=== PATIENT | male | born 1935 | race Caucasian/White ===

== ENCOUNTER → 2019-03-18 09:41 | Outpatient (CLI) | payer MEDICARE, OTHER, SELFPAY ==
[2019-03-18 09:53] LABS: Bacteria Urine None Seen; RBC Urine None Seen (0-5/HPF); WBC Urine None Seen (0-5/HPF)
[2019-03-18 10:40] LABS: Appearance Urine UA CLEAR; Bilirubin Urine UA NEGATIVE (NEGATIVE); Color Urine UA YELLOW; Glucose Urine UA NEGATIVE (Negative); Ketones Urine UA NEGATIVE (NEGATIVE); Leukocyte Esterase Urine UA NEGATIVE (NEGATIVE); Nitrite Urine UA NEGATIVE (Negative); Occult Blood Urine UA NEGATIVE (Negative); Protein Urine UA NEGATIVE (Negative); Specific Gravity Urine UA 1.025 (1.000-1.035); Urobilinogen Urine UA 0.2 E.U./dL (0.2); pH Urine UA 5.5 (4.5-8.0)
[2019-03-18 10:47] LABS: Add Manual Diff / Slide Review NO; Basophils Absolute Auto 0 /uL (0-100); Basophils Percent Auto 0.4 % (0-2); Eosinophils Absolute Auto 100 /uL (0-450); Eosinophils Percent Auto 0.9 % (2-4); Hematocrit 49.1 % (41-53); Hemoglobin 16.8 g/dL (13.5-17.5); Lymphocytes Absolute Auto 1600 /uL (1100-4500); Lymphocytes Percent Auto 28.1 % (25-40); Mean Corpuscular HGB Conc 34.1 % (30-36); Mean Corpuscular Hemoglobin 30.3 PG (26-34); Mean Corpuscular Volume 88.8 fL (80-100); Monocytes Absolute Auto 600 /uL (0-900); Monocytes Percent Auto 11.3 % (3-14); Neutrophils Absolute Auto 3400 /uL (1500-7000); Neutrophils Percent Auto 59.3 % (50-75); Platelet Count 189 X10^3/uL (150-400); Red Blood Cell Count 5.53 X10^6/uL (4.5-5.9); Red Cell Distribution Width 13.4 % (11.6-14.8); White Blood Cell Count 5.7 X10^3/uL (4.5-11.0)
[2019-03-18 10:48] LABS: Culture Indicated Urine Cult Not Indicated; Urine Comments Microscopic Normal
[2019-03-18 10:52] LABS: Hemoglobin A1C% w Est Avg Glu 5.5 % (4.0-6.0)
[2019-03-18 10:59] LABS: BUN Creatinine Ratio 31.1 (6-22); Blood Urea Nitrogen 28 mg/dL (9-20); Calcium 8.8 mg/dL (8.4-10.2); Carbon Dioxide 32 mmol/L (22-32); Chloride 103 mmol/L (98-107); Estimated Glomerular Filt Rate > 60.0 mL/min (>60); Glucose 96 mg/dL (80-110); HEMOLYSIS < 15 (0-50); Potassium 4.1 mmol/L (3.4-5.1); Sodium 143 mmol/L (137-145)
== END ==
PROVIDERS: PCP Internal Medicine; Visit Provider Orthopaedic Surgery
DX: Z01.818 Encounter for other preprocedural examination (principal); Z01.812 Encounter for preprocedural laboratory examination; R73.9 Hyperglycemia, unspecified; N39.0 Urinary tract infection, site not specified
CPT/HCPCS: 36415; 80048; 81001; 83036; 85025; 93005; 93010

== ENCOUNTER 2022-11-21 16:40 | Inpatient (IN) | payer MEDICARE, OTHER, SELFPAY ==
[2022-11-21] VITALS (72 sets, daily range): BP systolic 109–188; BP diastolic 72–111; PULSE 51–186; RESP 13–31; TEMP 36.7; O2SAT 93–98; BMI 25.8; BMI 26.2
--- NOTE | 2022-11-21 16:53 | DI.RAD.S_ITS ---
PROCEDURE: XR CHEST 1V INDICATIONS: chest pain TECHNIQUE: One view of the chest was acquired. COMPARISON: None. FINDINGS: Surgical changes and devices: None. Lungs and pleura: Low lung volumes. No dense consolidation or pleural effusion. Mediastinum: Mediastinal contours appear normal. Heart size is normal. Bones and chest wall: No suspicious bony lesions. Overlying soft tissues appear unremarkable. IMPRESSION: Low lung volumes. Portable radiograph. This limits evaluation. No acute radiographic abnormality Dictated by: Tom Flores M.D. on 11/21/2022 at 17:03 Approved by: Tom Flores M.D. on 11/21/2022 at 17:04
[2022-11-21] MEDS: ASPIRIN 81 MG CHEW TAB 324 MG PO (17:33)
[2022-11-21] MEDS: ADENOSINE 6 MG/2 ML VIAL IV (17:45)
--- NOTE | 2022-11-21 17:45 | ED_ITS ---
HPI - Arrhythmia/Palpitations <Marlon Bass MD - Last Filed: 11/30/22 09:38> General Chief Complaint: Arrhythmia/Palpitations Stated Complaint: high heart rate - ~ 190 Time Seen by Provider: 11/21/22 16:54 Source: patient Mode of arrival: Ambulatory History of Present Illness HPI narrative: Patient here for palpitations and dizziness. Patient seen at [facility] emergency department yesterday. Given Adenocard and discharged home to follow up with [facility] EP Cardiology Dr. Sharma. No prescriptions were given. Patient denies any chest pain. No prior history of arrhythmia. Related Data Home Medications Medication Instructions Recorded Confirmed aspirin 81 mg tablet 81 mg PO DAILY 11/21/22 11/21/22 atorvastatin 40 mg tablet 40 mg PO ONCE PM 11/21/22 11/21/22 losartan 100 1 tab PO QAM 11/21/22 11/21/22 mg-hydrochlorothiazide 12.5 mg tablet potassium chloride 10 mEq 10 meq PO DAILY 11/21/22 11/21/22 tablet,extended release Previous Rx's Medication Instructions Recorded amlodipine 10 mg tablet 10 mg PO DAILY #90 tabs 11/24/22 metoprolol succinate 50 mg 50 mg PO DAILY #90 tabs 11/24/22 tablet,extended release 24 hr Allergies Allergy/AdvReac Type Severity Reaction Status Date / Time No Known Drug Allergies Allergy Verified 11/21/22 20:40 Review of Systems <Marlon Bass MD - Last Filed: 11/30/22 09:38> Review of Systems Narrative: GENERAL: negative chills, fatigue, malaise, fever, sweats. HEENT: negative sinus pain, ear pain, sore throat RESPIRATORY: negative dyspnea, cough CARDIOVASCULAR: negative chest pain, positive palpitations GASTROINTESTINAL: negative nausea, vomiting, abdominal pain : negative dysuria, frequency, hematuria MUSCULOSKELETAL: negative muscle or bony pain SKIN: negative rash, skin lesions NEUROLOGIC: negative weakness, numbness, positive dizzy ROS Unobtainable: All systems reviewed & are unremarkable except as noted in HPI and below Patient History <Marlon Bass MD - Last Filed: 11/30/22 09:38> Medical History (Updated 11/21/22 @ 20:14 by Melissa Mercer RN) High cholesterol Hypertension Social History household members: spouse Smoking Status: Never smoker alcohol intake: never Smoking Status: Never smoker Substance Use Type: does not use Exam <Marlon Bass MD - Last Filed: 11/30/22 09:38> Narrative Exam Narrative: GENERAL: in no distress, not toxic not dyspneic HEAD: Normocephalic. EYES: Pupils equal round ENT: Mucous membranes moist. NECK: Trachea midline. CARDIOVASCULAR: Tachycardia with Regular rate and rhythm RESPIRATORY: Clear to auscultation. Breath sounds equal bilaterally. No wheezes, rales, or rhonchi. GASTROINTESTINAL: Abdomen soft, non-tender EXTREMITIES: No gross deformities. BACK: No flank tenderness. NEURO: AOx4. SKIN: Warm and dry PSYCH: Not anxious, is cooperative Initial Vital Signs Initial Vital Signs: Vital Signs Temperature 98.0 F 11/21/22 16:48 Pulse Rate 186 H 11/21/22 16:48 Respiratory Rate 16 11/21/22 16:48 Blood Pressure 144/99 H 11/21/22 16:48 Pulse Oximetry 96 11/21/22 16:48 Oxygen Delivery Method Room Air 11/21/22 16:48 <Prasad Sánchez DO - Last Filed: 11/21/22 22:24> Initial Vital Signs Initial Vital Signs: Vital Signs Temperature 98.0 F 11/21/22 16:48 Pulse Rate 186 H 11/21/22 16:48 Respiratory Rate 16 11/21/22 16:48 Blood Pressure 144/99 H 11/21/22 16:48 Pulse Oximetry 96 11/21/22 16:48 Oxygen Delivery Method Room Air 11/21/22 16:48 Course <Marlon Bass MD - Last Filed: 11/30/22 09:38> Orders Ordered: Discontinued Medications Adenosine (Adenosine 6 Mg/2 Ml Vial) 6 mg IV NOW ONE Stop: 11/21/22 17:42 Last Admin: 11/21/22 17:45 Dose: 6 mg Documented By: STEVEN Adenosine (Adenosine 6 Mg/2 Ml Vial) 12 mg IV NOW ONE Stop: 11/21/22 23:29 Last Admin: 11/21/22 23:32 Dose: 12 mg Documented By: Amlodipine Besylate (Amlodipine 5 Mg Tablet) 10 mg PO DAILY [facility] Last Admin: 11/24/22 10:02 Dose: 10 mg Documented By: Admin: 11/23/22 09:18 Dose: 10 mg Documented By: Admin: 11/22/22 15:40 Dose: 10 mg Documented By: AUSTIN Apixaban (Apixaban 5 Mg Tablet) 5 mg PO BID [facility] Last Admin: 11/23/22 09:17 Dose: 5 mg Documented By: Admin: 11/22/22 21:15 Dose: 5 mg Documented By: Admin: 11/22/22 09:59 Dose: 5 mg Documented By: TERESA Aspirin (Aspirin 81 Mg Chew Tab) 324 mg PO NOW ONE Stop: 11/21/22 16:54 Last Admin: 11/21/22 17:33 Dose: 324 mg Documented By: CHHAYA Aspirin (Aspirin 81 Mg Chew Tab) 81 mg PO DAILY [facility] Last Admin: 11/22/22 07:05 Dose: 81 mg Documented By: ONEL Atorvastatin Calcium (Atorvastatin 20 Mg Tablet) 40 mg PO BEDTIME [facility] Last Admin: 11/23/22 21:12 Dose: 40 mg Documented By: Admin: 11/22/22 21:15 Dose: 40 mg Documented By: Admin: 11/21/22 22:26 Dose: 40 mg Documented By: Diltiazem HCl (Diltiazem 5 Mg/Ml Sdv) 20 mg IV NOW ONE Stop: 11/21/22 23:36 Last Admin: 11/21/22 23:44 Dose: 20 mg Documented By: Enoxaparin Sodium (Enoxaparin 40 Mg/0.4 Ml Syringe) 40 mg SUBCUT DAILY [facility] Last Admin: 11/22/22 07:06 Dose: 40 mg Documented By: ONEL Heparin Sodium (Porcine) (Heparin 5,000 Unit/Ml Vial) 5,000 unit SUBCUT BID [facility] Last Admin: 11/24/22 10:15 Dose: 5,000 unit Documented By: Admin: 11/23/22 21:12 Dose: 5,000 unit Documented By: CARMELO Hydralazine HCl (Hydralazine 20 Mg/Ml Vial) 10 mg IV Q6HR PRN PRN Reason: SBP >180 or DBP >110 Last Admin: 11/23/22 09:19 Dose: 10 mg Documented By: Admin: 11/22/22 19:03 Dose: 10 mg Documented By: Admin: 11/22/22 12:18 Dose: 10 mg Documented By: TERESA Hydrochlorothiazide (Hydrochlorothiazide 25 Mg Tablet) 12.5 mg PO DAILY [facility] Last Admin: 11/24/22 10:01 Dose: 12.5 mg Documented By: Admin: 11/23/22 09:17 Dose: 12.5 mg Documented By: Admin: 11/22/22 09:43 Dose: Not Given Documented By: Admin: 11/22/22 07:06 Dose: 12.5 mg Documented By: ONEL DILTIAZEM (Diltiazem 125 Mg/125 Ml-D5w) 125 mg in 125 mls @ 5 mls/hr IV TITRATE [facility]; Protocol Last Titration: 11/22/22 01:33 Dose: 0 mg/hr, 0 mls/hr Documented By: Admin: 11/21/22 23:44 Dose: 5 mg/hr, 5 mls/hr Documented By: HERMES Magnesium Sulfate (Magnesium Sulfate) 2 gm in 50 mls @ 25 mls/hr IV NOW ONE Stop: 11/23/22 10:24 Last Admin: 11/23/22 09:16 Dose: 25 mls/hr Documented By: ANABEL Co-signed By: JESSICA Losartan Potassium (Losartan 50 Mg Tablet) 100 mg PO DAILY [facility] Last Admin: 11/24/22 10:01 Dose: 100 mg Documented By: Admin: 11/23/22 09:17 Dose: 100 mg Documented By: Admin: 11/22/22 09:45 Dose: Not Given Documented By: Admin: 11/22/22 07:05 Dose: 100 mg Documented By: ONEL Metoprolol Succinate (Metoprolol Er 25 Mg Tablet) 12.5 mg PO DAILY [facility] Last Admin: 11/22/22 10:08 Dose: 12.5 mg Documented By: TERESA Metoprolol Succinate (Metoprolol Er 25 Mg Tablet) 25 mg PO DAILY [facility] Last Admin: 11/23/22 09:17 Dose: 25 mg Documented By: ANABEL Metoprolol Succinate (Metoprolol Er 50 Mg Tablet) 100 mg PO DAILY [facility] Metoprolol Succinate (Metoprolol Er 50 Mg Tablet) 50 mg PO DAILY [facility] Last Admin: 11/24/22 10:03 Dose: 50 mg Documented By: ANABEL Metoprolol Tartrate (Metoprolol Tartrate 5 Mg/5 Ml Inj) 5 mg IV NOW ONE Stop: 11/21/22 17:42 Last Admin: 11/21/22 18:12 Dose: Not Given Documented By: STEVEN Metoprolol Tartrate (Metoprolol Ir 25 Mg Tablet) 25 mg PO BID [facility] Last Admin: 11/22/22 10:05 Dose: Not Given Documented By: TERESA Metoprolol Tartrate (Metoprolol Tartrate 5 Mg/5 Ml Inj) 5 mg IV NOW ONE Stop: 11/21/22 23:24 Last Admin: 11/21/22 23:27 Dose: 5 mg Documented By: Metoprolol Tartrate (Metoprolol Tartrate 5 Mg/5 Ml Inj) 5 mg IV Q5M PRN PRN Reason: HR >130, hold for SBP <100 Metoprolol Tartrate (Metoprolol Ir 25 Mg Tablet) 25 mg PO Q6HR [facility] Last Admin: 11/24/22 06:27 Dose: Not Given Documented By: Admin: 11/24/22 00:09 Dose: Not Given Documented By: Admin: 11/23/22 17:14 Dose: 25 mg Documented By: Admin: 11/23/22 13:35 Dose: Not Given Documented By: Admin: 11/23/22 11:45 Dose: 25 mg Documented By: ANABEL Naloxone HCl (Naloxone 0.4 Mg/Ml Vial) 0.2 mg IV Q2MIN PRN PRN Reason: Opiate Reversal Non-Formulary Medication (Aspirin) 81 mg PO DAILY [facility] Non-Formulary Medication (Losartan-Hydrochlorothiazide) 1 tab PO QAM [facility] Potassium Chloride (Potassium Chloride 10 Meq Tab) 10 meq PO DAILY [facility] Last Admin: 11/24/22 10:02 Dose: 10 meq Documented By: Admin: 11/23/22 09:18 Dose: 10 meq Documented By: Admin: 11/22/22 09:45 Dose: Not Given Documented By: Admin: 11/22/22 07:07 Dose: 10 meq Documented By: ONEL Potassium Chloride (Potassium Chloride 20 Meq Tab) 40 meq PO NOW ONE Stop: 11/22/22 08:57 Last Admin: 11/22/22 09:59 Dose: 40 meq Documented By: TERESA Quetiapine Fumarate (Quetiapine 25 Mg Tablet) 25 mg PO BEDTIME [facility] Last Admin: 11/23/22 21:12 Dose: 25 mg Documented By: Admin: 11/22/22 21:15 Dose: 25 mg Documented By: Admin: 11/22/22 19:03 Dose: 25 mg Documented By: MM Sodium Chloride (Sodium Chloride 0.9% Flush) 10 ml IV PRN PRN PRN Reason: Flush Sodium Chloride (Sodium Chloride 0.9% Flush) 10 ml IV BID [facility] Last Admin: 11/24/22 10:15 Dose: 10 ml Documented By: Admin: 11/23/22 21:12 Dose: 10 ml Documented By: CARMELO Vital Signs Vital signs: Vital Signs - 8 hr 11/21/22 16:48 11/21/22 16:56 11/21/22 17:00 Temperature 98.0 F Pulse Rate 186 H Respiratory Rate 16 Blood Pressure 144/99 H 109/82 116/93 H Pulse Oximetry 96 Oxygen Delivery Method Room Air 11/21/22 17:00 11/21/22 17:20 11/21/22 17:20 Temperature Pulse Rate 183 H 173 H Respiratory Rate 23 22 Blood Pressure 127/89 Pulse Oximetry 96 96 Oxygen Delivery Method 11/21/22 17:30 11/21/22 17:30 11/21/22 17:40 Temperature Pulse Rate 172 H 174 H Respiratory Rate 23 25 H Blood Pressure 122/81 Pulse Oximetry 94 94 Oxygen Delivery Method 11/21/22 17:40 11/21/22 17:50 11/21/22 17:50 Temperature Pulse Rate 176 H Respiratory Rate 30 H Blood Pressure 123/84 131/87 Pulse Oximetry 95 Oxygen Delivery Method 11/21/22 18:00 11/21/22 18:00 11/21/22 18:05 Temperature Pulse Rate 171 H Respiratory Rate 29 H Blood Pressure 127/89 188/84 H Pulse Oximetry 94 Oxygen Delivery Method 11/21/22 18:05 11/21/22 18:10 11/21/22 18:10 Temperature Pulse Rate 77 70 Respiratory Rate 22 22 Blood Pressure 155/78 H Pulse Oximetry 94 94 Oxygen Delivery Method 11/21/22 18:15 11/21/22 18:15 11/21/22 18:20 Temperature Pulse Rate 62 63 Respiratory Rate 17 22 Blood Pressure 158/74 H Pulse Oximetry 96 96 Oxygen Delivery Method 11/21/22 18:20 11/21/22 18:25 11/21/22 18:25 Temperature Pulse Rate 64 Respiratory Rate 21 Blood Pressure 145/74 H 154/72 H Pulse Oximetry 96 Oxygen Delivery Method 11/21/22 18:30 11/21/22 18:31 11/21/22 18:31 Temperature Pulse Rate 81 83 Respiratory Rate 20 26 H Blood Pressure 187/91 H Pulse Oximetry 97 96 Oxygen Delivery Method 11/21/22 18:41 11/21/22 18:41 11/21/22 18:45 Temperature Pulse Rate 67 Respiratory Rate 21 Blood Pressure 154/97 H 149/85 H Pulse Oximetry 95 Oxygen Delivery Method 11/21/22 18:45 11/21/22 18:50 11/21/22 18:50 Temperature Pulse Rate 61 60 Respiratory Rate 21 19 Blood Pressure 158/81 H Pulse Oximetry 95 95 Oxygen Delivery Method 11/21/22 18:55 11/21/22 18:55 11/21/22 19:00 Temperature Pulse Rate 64 Respiratory Rate 20 Blood Pressure 154/80 H 162/81 H Pulse Oximetry 96 Oxygen Delivery Method 11/21/22 19:00 11/21/22 19:05 11/21/22 19:05 Temperature Pulse Rate 61 63 Respiratory Rate 20 18 Blood Pressure 133/80 Pulse Oximetry 96 96 Oxygen Delivery Method 11/21/22 19:10 11/21/22 19:10 11/21/22 19:15 Temperature Pulse Rate 60 60 Respiratory Rate 16 21 Blood Pressure 143/88 H Pulse Oximetry 97 95 Oxygen Delivery Method 11/21/22 19:15 11/21/22 19:21 11/21/22 19:21 Temperature Pulse Rate 63 Respiratory Rate 22 Blood Pressure 161/77 H 174/91 H Pulse Oximetry 95 Oxygen Delivery Method 11/21/22 19:26 11/21/22 19:26 11/21/22 19:30 Temperature Pulse Rate 62 Respiratory Rate 21 Blood Pressure 179/86 H 161/84 H Pulse Oximetry 96 Oxygen Delivery Method 11/21/22 19:30 11/21/22 19:35 11/21/22 19:35 Temperature Pulse Rate 59 L 57 L Respiratory Rate 21 20 Blood Pressure 158/89 H Pulse Oximetry 95 96 Oxygen Delivery Method 11/21/22 19:40 11/21/22 19:40 11/21/22 19:45 Temperature Pulse Rate 55 L 57 L Respiratory Rate 22 16 Blood Pressure 145/88 H Pulse Oximetry 95 98 Oxygen Delivery Method 11/21/22 19:45 11/21/22 19:50 11/21/22 19:50 Temperature Pulse Rate 57 L Respiratory Rate 20 Blood Pressure 158/85 H 152/91 H Pulse Oximetry 95 Oxygen Delivery Method 11/21/22 20:00 11/21/22 20:00 Temperature Pulse Rate 57 L Respiratory Rate 21 Blood Pressure 152/90 H Pulse Oximetry 96 Oxygen Delivery Method <Prasad Sánchez DO - Last Filed: 11/21/22 22:24> Orders Ordered: Discontinued Medications Adenosine (Adenosine 6 Mg/2 Ml Vial) 6 mg IV NOW ONE Stop: 11/21/22 17:42 Last Admin: 11/21/22 17:45 Dose: 6 mg Documented By: STEVEN Adenosine (Adenosine 6 Mg/2 Ml Vial) 12 mg IV NOW ONE Stop: 11/21/22 23:29 Last Admin: 11/21/22 23:32 Dose: 12 mg Documented By: Amlodipine Besylate (Amlodipine 5 Mg Tablet) 10 mg PO DAILY [facility] Last Admin: 11/24/22 10:02 Dose: 10 mg Documented By: Admin: 11/23/22 09:18 Dose: 10 mg Documented By: Admin: 11/22/22 15:40 Dose: 10 mg Documented By: AUSTIN Apixaban (Apixaban 5 Mg Tablet) 5 mg PO BID [facility] Last Admin: 11/23/22 09:17 Dose: 5 mg Documented By: Admin: 11/22/22 21:15 Dose: 5 mg Documented By: Admin: 11/22/22 09:59 Dose: 5 mg Documented By: TERESA Aspirin (Aspirin 81 Mg Chew Tab) 324 mg PO NOW ONE Stop: 11/21/22 16:54 Last Admin: 11/21/22 17:33 Dose: 324 mg Documented By: CHHAYA Aspirin (Aspirin 81 Mg Chew Tab) 81 mg PO DAILY [facility] Last Admin: 11/22/22 07:05 Dose: 81 mg Documented By: ONEL Atorvastatin Calcium (Atorvastatin 20 Mg Tablet) 40 mg PO BEDTIME [facility] Last Admin: 11/23/22 21:12 Dose: 40 mg Documented By: Admin: 11/22/22 21:15 Dose: 40 mg Documented By: Admin: 11/21/22 22:26 Dose: 40 mg Documented By: Diltiazem HCl (Diltiazem 5 Mg/Ml [facility]) 20 mg IV NOW ONE Stop: 11/21/22 23:36 Last Admin: 11/21/22 23:44 Dose: 20 mg Documented By: Enoxaparin Sodium (Enoxaparin 40 Mg/0.4 Ml Syringe) 40 mg SUBCUT DAILY [facility] Last Admin: 11/22/22 07:06 Dose: 40 mg Documented By: ONEL Heparin Sodium (Porcine) (Heparin 5,000 Unit/Ml Vial) 5,000 unit SUBCUT BID [facility] Last Admin: 11/24/22 10:15 Dose: 5,000 unit Documented By: Admin: 11/23/22 21:12 Dose: 5,000 unit Documented By: CARMELO Hydralazine HCl (Hydralazine 20 Mg/Ml Vial) 10 mg IV Q6HR PRN PRN Reason: SBP >180 or DBP >110 Last Admin: 11/23/22 09:19 Dose: 10 mg Documented By: Admin: 11/22/22 19:03 Dose: 10 mg Documented By: JOSE RAMON Admin: 11/22/22 12:18 Dose: 10 mg Documented By: TERESA Hydrochlorothiazide (Hydrochlorothiazide 25 Mg Tablet) 12.5 mg PO DAILY [facility] Last Admin: 11/24/22 10:01 Dose: 12.5 mg Documented By: Admin: 11/23/22 09:17 Dose: 12.5 mg Documented By: Admin: 11/22/22 09:43 Dose: Not Given Documented By: Admin: 11/22/22 07:06 Dose: 12.5 mg Documented By: ONEL DILTIAZEM (Diltiazem 125 Mg/125 Ml-D5w) 125 mg in 125 mls @ 5 mls/hr IV TITRATE [facility]; Protocol Last Titration: 11/22/22 01:33 Dose: 0 mg/hr, 0 mls/hr Documented By: Admin: 11/21/22 23:44 Dose: 5 mg/hr, 5 mls/hr Documented By: Magnesium Sulfate (Magnesium Sulfate) 2 gm in 50 mls @ 25 mls/hr IV NOW ONE Stop: 11/23/22 10:24 Last Admin: 11/23/22 09:16 Dose: 25 mls/hr Documented By: ANABEL Co-signed By: CLL Losartan Potassium (Losartan 50 Mg Tablet) 100 mg PO DAILY [facility] Last Admin: 11/24/22 10:01 Dose: 100 mg Documented By: Admin: 11/23/22 09:17 Dose: 100 mg Documented By: Admin: 11/22/22 09:45 Dose: Not Given Documented By: Admin: 11/22/22 07:05 Dose: 100 mg Documented By: ONEL Metoprolol Succinate (Metoprolol Er 25 Mg Tablet) 12.5 mg PO DAILY [facility] Last Admin: 11/22/22 10:08 Dose: 12.5 mg Documented By: TERESA Metoprolol Succinate (Metoprolol Er 25 Mg Tablet) 25 mg PO DAILY [facility] Last Admin: 11/23/22 09:17 Dose: 25 mg Documented By: ANABEL Metoprolol Succinate (Metoprolol Er 50 Mg Tablet) 100 mg PO DAILY [facility] Metoprolol Succinate (Metoprolol Er 50 Mg Tablet) 50 mg PO DAILY [facility] Last Admin: 11/24/22 10:03 Dose: 50 mg Documented By: ANABEL Metoprolol Tartrate (Metoprolol Tartrate 5 Mg/5 Ml Inj) 5 mg IV NOW ONE Stop: 11/21/22 17:42 Last Admin: 11/21/22 18:12 Dose: Not Given Documented By: STEVEN Metoprolol Tartrate (Metoprolol Ir 25 Mg Tablet) 25 mg PO BID [facility] Last Admin: 11/22/22 10:05 Dose: Not Given Documented By: TERESA Metoprolol Tartrate (Metoprolol Tartrate 5 Mg/5 Ml Inj) 5 mg IV NOW ONE Stop: 11/21/22 23:24 Last Admin: 11/21/22 23:27 Dose: 5 mg Documented By: Metoprolol Tartrate (Metoprolol Tartrate 5 Mg/5 Ml Inj) 5 mg IV Q5M PRN PRN Reason: HR >130, hold for SBP <100 Metoprolol Tartrate (Metoprolol Ir 25 Mg Tablet) 25 mg PO Q6HR [facility] Last Admin: 11/24/22 06:27 Dose: Not Given Documented By: Admin: 11/24/22 00:09 Dose: Not Given Documented By: Admin: 11/23/22 17:14 Dose: 25 mg Documented By: Admin: 11/23/22 13:35 Dose: Not Given Documented By: Admin: 11/23/22 11:45 Dose: 25 mg Documented By: ANABEL Naloxone HCl (Naloxone 0.4 Mg/Ml Vial) 0.2 mg IV Q2MIN PRN PRN Reason: Opiate Reversal Non-Formulary Medication (Aspirin) 81 mg PO DAILY [facility] Non-Formulary Medication (Losartan-Hydrochlorothiazide) 1 tab PO QAM [facility] Potassium Chloride (Potassium Chloride 10 Meq Tab) 10 meq PO DAILY [facility] Last Admin: 11/24/22 10:02 Dose: 10 meq Documented By: Admin: 11/23/22 09:18 Dose: 10 meq Documented By: Admin: 11/22/22 09:45 Dose: Not Given Documented By: Admin: 11/22/22 07:07 Dose: 10 meq Documented By: ONEL Potassium Chloride (Potassium Chloride 20 Meq Tab) 40 meq PO NOW ONE Stop: 11/22/22 08:57 Last Admin: 11/22/22 09:59 Dose: 40 meq Documented By: TERESA Quetiapine Fumarate (Quetiapine 25 Mg Tablet) 25 mg PO BEDTIME [facility] Last Admin: 11/23/22 21:12 Dose: 25 mg Documented By: Admin: 11/22/22 21:15 Dose: 25 mg Documented By: Admin: 11/22/22 19:03 Dose: 25 mg Documented By: MM Sodium Chloride (Sodium Chloride 0.9% Flush) 10 ml IV PRN PRN PRN Reason: Flush Sodium Chloride (Sodium Chloride 0.9% Flush) 10 ml IV BID [facility] Last Admin: 11/24/22 10:15 Dose: 10 ml Documented By: Admin: 11/23/22 21:12 Dose: 10 ml Documented By: CARMELO Vital Signs Vital signs: Vital Signs - 8 hr 11/21/22 16:48 11/21/22 16:56 11/21/22 17:00 Temperature 98.0 F Pulse Rate 186 H Respiratory Rate 16 Blood Pressure 144/99 H 109/82 116/93 H Pulse Oximetry 96 Oxygen Delivery Method Room Air 11/21/22 17:00 11/21/22 17:20 11/21/22 17:20 Temperature Pulse Rate 183 H 173 H Respiratory Rate 23 22 Blood Pressure 127/89 Pulse Oximetry 96 96 Oxygen Delivery Method 11/21/22 17:30 11/21/22 17:30 11/21/22 17:40 Temperature Pulse Rate 172 H 174 H Respiratory Rate 23 25 H Blood Pressure 122/81 Pulse Oximetry 94 94 Oxygen Delivery Method 11/21/22 17:40 11/21/22 17:50 11/21/22 17:50 Temperature Pulse Rate 176 H Respiratory Rate 30 H Blood Pressure 123/84 131/87 Pulse Oximetry 95 Oxygen Delivery Method 11/21/22 18:00 11/21/22 18:00 11/21/22 18:05 Temperature Pulse Rate 171 H Respiratory Rate 29 H Blood Pressure 127/89 188/84 H Pulse Oximetry 94 Oxygen Delivery Method 11/21/22 18:05 11/21/22 18:10 11/21/22 18:10 Temperature Pulse Rate 77 70 Respiratory Rate 22 22 Blood Pressure 155/78 H Pulse Oximetry 94 94 Oxygen Delivery Method 11/21/22 18:15 11/21/22 18:15 11/21/22 18:20 Temperature Pulse Rate 62 63 Respiratory Rate 17 22 Blood Pressure 158/74 H Pulse Oximetry 96 96 Oxygen Delivery Method 11/21/22 18:20 11/21/22 18:25 11/21/22 18:25 Temperature Pulse Rate 64 Respiratory Rate 21 Blood Pressure 145/74 H 154/72 H Pulse Oximetry 96 Oxygen Delivery Method 11/21/22 18:30 11/21/22 18:31 11/21/22 18:31 Temperature Pulse Rate 81 83 Respiratory Rate 20 26 H Blood Pressure 187/91 H Pulse Oximetry 97 96 Oxygen Delivery Method 11/21/22 18:41 11/21/22 18:41 11/21/22 18:45 Temperature Pulse Rate 67 Respiratory Rate 21 Blood Pressure 154/97 H 149/85 H Pulse Oximetry 95 Oxygen Delivery Method 11/21/22 18:45 11/21/22 18:50 11/21/22 18:50 Temperature Pulse Rate 61 60 Respiratory Rate 21 19 Blood Pressure 158/81 H Pulse Oximetry 95 95 Oxygen Delivery Method 11/21/22 18:55 11/21/22 18:55 11/21/22 19:00 Temperature Pulse Rate 64 Respiratory Rate 20 Blood Pressure 154/80 H 162/81 H Pulse Oximetry 96 Oxygen Delivery Method 11/21/22 19:00 11/21/22 19:05 11/21/22 19:05 Temperature Pulse Rate 61 63 Respiratory Rate 20 18 Blood Pressure 133/80 Pulse Oximetry 96 96 Oxygen Delivery Method 11/21/22 19:10 11/21/22 19:10 11/21/22 19:15 Temperature Pulse Rate 60 60 Respiratory Rate 16 21 Blood Pressure 143/88 H Pulse Oximetry 97 95 Oxygen Delivery Method 11/21/22 19:15 11/21/22 19:21 11/21/22 19:21 Temperature Pulse Rate 63 Respiratory Rate 22 Blood Pressure 161/77 H 174/91 H Pulse Oximetry 95 Oxygen Delivery Method 11/21/22 19:26 11/21/22 19:26 11/21/22 19:30 Temperature Pulse Rate 62 Respiratory Rate 21 Blood Pressure 179/86 H 161/84 H Pulse Oximetry 96 Oxygen Delivery Method 11/21/22 19:30 11/21/22 19:35 11/21/22 19:35 Temperature Pulse Rate 59 L 57 L Respiratory Rate 21 20 Blood Pressure 158/89 H Pulse Oximetry 95 96 Oxygen Delivery Method 11/21/22 19:40 11/21/22 19:40 11/21/22 19:45 Temperature Pulse Rate 55 L 57 L Respiratory Rate 22 16 Blood Pressure 145/88 H Pulse Oximetry 95 98 Oxygen Delivery Method 11/21/22 19:45 11/21/22 19:50 11/21/22 19:50 Temperature Pulse Rate 57 L Respiratory Rate 20 Blood Pressure 158/85 H 152/91 H Pulse Oximetry 95 Oxygen Delivery Method 11/21/22 20:00 11/21/22 20:00 Temperature Pulse Rate 57 L Respiratory Rate 21 Blood Pressure 152/90 H Pulse Oximetry 96 Oxygen Delivery Method MDM - Arrhythmia/Palpitations <Marlon Bass MD - Last Filed: 11/30/22 09:38> Lab Data 11/24/22 08:15 11/24/22 08:15 Labs: Lab Results 11/21/22 11/22/22 11/23/22 Range/Units 16:50 04:24 07:48 WBC 8.7 7.1 (4.5-11.0) X10^3/uL RBC 5.33 5.35 (4.5-5.9) X10^6/uL Hgb 15.9 16.0 (13.5-17.5) g/dL Hct 47.1 47.3 (41-53) % MCV 88.3 88.3 (80-100) fL MCH 29.9 29.9 (26-34) PG MCHC 33.8 33.8 (30-36) % RDW 13.1 13.3 (11.6-14.8) % Plt Count 206 189 (150-400) X10^3/uL Neut % (Auto) 63.8 59.5 (50-75) % Lymph % (Auto) 21.3 L 24.8 L (25-40) % Miner % (Auto) 13.0 13.9 (3-14) % Eos % (Auto) 1.5 L 1.1 L (2-4) % Baso % (Auto) 0.4 0.7 (0-2) % Neut # (Auto) 5500 4200 (4107-2903) /uL Lymph # (Auto) 1800 1800 (1757-9080) /uL Miner # (Auto) 1100 H 1000 H (0-900) /uL Eos # (Auto) 100 100 (0-450) /uL Baso # (Auto) 0 0 (0-100) /uL PT 13.1 H (10.1-12.7) SECONDS INR 1.1 (0.9-1.3) APTT 35 (26-36) SECONDS Sodium 140 139 137 (137-145) mmol/L Potassium 3.9 3.8 3.9 (3.4-5.1) mmol/L Chloride 107 107 106 (98-107) mmol/L Carbon Dioxide 25 25 24 (22-32) mmol/L BUN 25 H 23 H 19 (9-20) mg/dL Creatinine 1.07 0.86 0.76 (0.66-1.25) mg/dL Estimated GFR > 60 > 60 > 60 (>60) mL/min BUN/Creatinine Ratio 23.4 H 26.7 H 25.0 H (6-22) Glucose 101 98 97 (80-110) mg/dL Calcium 8.9 8.1 L 8.9 (8.4-10.2) mg/dL Magnesium 2.0 1.8 (1.6-2.3) mg/dL Total Bilirubin 0.6 (0.2-1.3) mg/dL AST 29 (17-59) IU/L ALT 20 (<50) IU/L Alkaline Phosphatase 80 (38-126) U/L Total Creatine Kinase 71 (55-170) U/L Troponin I 0.045 H (0.01-0.034) ng/mL Total Protein 6.8 (6.3-8.2) g/dL Albumin 4.0 (3.5-5.0) g/dL Globulin 2.8 (1.7-4.1) g/dL Albumin/Globulin Ratio 1.4 (1.0-2.8) Lipase 155 (23-300) U/L TSH 1.96 (0.47-4.68) uIU/mL 11/24/22 Range/Units 08:15 WBC 6.9 (4.5-11.0) X10^3/uL RBC 5.62 (4.5-5.9) X10^6/uL Hgb 16.6 (13.5-17.5) g/dL Hct 49.8 (41-53) % MCV 88.6 (80-100) fL MCH 29.6 (26-34) PG MCHC 33.4 (30-36) % RDW 13.1 (11.6-14.8) % Plt Count 218 (150-400) X10^3/uL Neut % (Auto) 60.4 (50-75) % Lymph % (Auto) 24.4 L (25-40) % Miner % (Auto) 12.9 (3-14) % Eos % (Auto) 1.9 L (2-4) % Baso % (Auto) 0.4 (0-2) % Neut # (Auto) 4200 (2007-0120) /uL Lymph # (Auto) 1700 (5237-4891) /uL Miner # (Auto) 900 (0-900) /uL Eos # (Auto) 100 (0-450) /uL Baso # (Auto) 0 (0-100) /uL PT (10.1-12.7) SECONDS INR (0.9-1.3) APTT (26-36) SECONDS Sodium 138 (137-145) mmol/L Potassium 3.9 (3.4-5.1) mmol/L Chloride 105 (98-107) mmol/L Carbon Dioxide 25 (22-32) mmol/L BUN 26 H (9-20) mg/dL Creatinine 0.90 (0.66-1.25) mg/dL Estimated GFR > 60 (>60) mL/min BUN/Creatinine Ratio 28.9 H (6-22) Glucose 97 (80-110) mg/dL Calcium 9.1 (8.4-10.2) mg/dL Magnesium (1.6-2.3) mg/dL Total Bilirubin (0.2-1.3) mg/dL AST (17-59) IU/L ALT (<50) IU/L Alkaline Phosphatase (38-126) U/L Total Creatine Kinase (55-170) U/L Troponin I 0.014 (0.01-0.034) ng/mL Total Protein (6.3-8.2) g/dL Albumin (3.5-5.0) g/dL Globulin (1.7-4.1) g/dL Albumin/Globulin Ratio (1.0-2.8) Lipase (23-300) U/L TSH (0.47-4.68) uIU/mL Imaging Data Chest x-ray: Radiologist's Impresson: [address] [address] XRay Report Signed Patient: Chinmay Lucas MR#: [id number] : 1935 Acct:[id number] Age/Sex: 86 / M Date of Service: 11/21/22 Loc: ED Accession Number: [id number] ?? Procedure: XR chest 1V Ordering Provider: Marlon Bass MD PROCEDURE:? XR CHEST 1V ? INDICATIONS:? chest pain ? TECHNIQUE:? One view of the chest was acquired.? ? COMPARISON:? None. ? FINDINGS:? ? Surgical changes and devices:? None.? ? Lungs and pleura:? Low lung volumes.? No dense consolidation or pleural effusion. ? Mediastinum:? Mediastinal contours appear normal.? Heart size is normal.? ? Bones and chest wall:? No suspicious bony lesions.? Overlying soft tissues appear unremarkable.? ? ? IMPRESSION:? Low lung volumes.? Portable radiograph.? This limits evaluation.? No acute radiographic abnormality ? ? Dictated by: Tom Flores M.D. on 11/21/2022 at 17:03 ? ? Approved by: Tom Flores M.D. on 11/21/2022 at 17:04 ? MDM Narrative Medical decision making narrative: Patient here for palpitations and dizziness. Patient seen at [facility] emergency department yesterday. Given Adenocard and discharged home to follow up with [facility] EP Cardiology Dr. Sharma. No prescriptions were given. Patient denies any chest pain. No prior history of arrhythmia. After history and exam CBC CMP cardiology consult EKG Adenocard [facility] CC: Palpitations dizziness Complicating co-morbidities: Seen yesterday for arrhythmia Data collected from: Patient and Medical records reviewed: Patient ER visit yesterday at [facility], patient was given Adenocard and he converted to sinus rhythm. The provider there spoke with Dr. Parks with [facility] Cardiology, patient to follow up with EP Cardiology Dr. Sharma. No prescriptions provided. Differential considered: Includes but not limited to AFib flutter SVT Exam documented above, pertinent findings include: Tachycardia Lab Test results independently reviewed as above. Pertinent findings: Independently reviewed EKG EKG shows rate 173 SVT versus a flutter Imaging studies independently reviewed: Chest x-ray no acute finding Consultations: 5:00 p.m.. Spoke with cardiology dr julian,, he is reviewed patient's EKG. Recommends giving adenosine 6 mg, followed by metoprolol 5 mg IV. Admit for observation echocardiogram in the morning. He feels patient may be in a flutter. Patient did not respond to carotid massage here. Give Adenocard to slow down the rate. Treatments: Re-evaluations: Discussion: Diagnosis: Palpitations 6:00 p.m. Shelia: Sign out to Dr Sánchez labs are pending. Needs admit <Prasad Sánchez, DO - Last Filed: 11/21/22 22:24> Lab Data Labs: Lab Results 11/21/22 11/22/22 11/23/22 Range/Units 16:50 04:24 07:48 WBC 8.7 7.1 (4.5-11.0) X10^3/uL RBC 5.33 5.35 (4.5-5.9) X10^6/uL Hgb 15.9 16.0 (13.5-17.5) g/dL Hct 47.1 47.3 (41-53) % MCV 88.3 88.3 (80-100) fL MCH 29.9 29.9 (26-34) PG MCHC 33.8 33.8 (30-36) % RDW 13.1 13.3 (11.6-14.8) % Plt Count 206 189 (150-400) X10^3/uL Neut % (Auto) 63.8 59.5 (50-75) % Lymph % (Auto) 21.3 L 24.8 L (25-40) % [place] % (Auto) 13.0 13.9 (3-14) % Eos % (Auto) 1.5 L 1.1 L (2-4) % Baso % (Auto) 0.4 0.7 (0-2) % Neut # (Auto) 5500 4200 (2763-1219) /uL Lymph # (Auto) 1800 1800 (4072-1199) /uL [place] # (Auto) 1100 H 1000 H (0-900) /uL Eos # (Auto) 100 100 (0-450) /uL Baso # (Auto) 0 0 (0-100) /uL PT 13.1 H (10.1-12.7) SECONDS INR 1.1 (0.9-1.3) APTT 35 (26-36) SECONDS Sodium 140 139 137 (137-145) mmol/L Potassium 3.9 3.8 3.9 (3.4-5.1) mmol/L Chloride 107 107 106 (98-107) mmol/L Carbon Dioxide 25 25 24 (22-32) mmol/L BUN 25 H 23 H 19 (9-20) mg/dL Creatinine 1.07 0.86 0.76 (0.66-1.25) mg/dL Estimated GFR > 60 > 60 > 60 (>60) mL/min BUN/Creatinine Ratio 23.4 H 26.7 H 25.0 H (6-22) Glucose 101 98 97 (80-110) mg/dL Calcium 8.9 8.1 L 8.9 (8.4-10.2) mg/dL Magnesium 2.0 1.8 (1.6-2.3) mg/dL Total Bilirubin 0.6 (0.2-1.3) mg/dL AST 29 (17-59) IU/L ALT 20 (<50) IU/L Alkaline Phosphatase 80 (38-126) U/L Total Creatine Kinase 71 (55-170) U/L Troponin I 0.045 H (0.01-0.034) ng/mL Total Protein 6.8 (6.3-8.2) g/dL Albumin 4.0 (3.5-5.0) g/dL Globulin 2.8 (1.7-4.1) g/dL Albumin/Globulin Ratio 1.4 (1.0-2.8) Lipase 155 (23-300) U/L TSH 1.96 (0.47-4.68) uIU/mL 11/24/22 Range/Units 08:15 WBC 6.9 (4.5-11.0) X10^3/uL RBC 5.62 (4.5-5.9) X10^6/uL Hgb 16.6 (13.5-17.5) g/dL Hct 49.8 (41-53) % MCV 88.6 (80-100) fL MCH 29.6 (26-34) PG MCHC 33.4 (30-36) % RDW 13.1 (11.6-14.8) % Plt Count 218 (150-400) X10^3/uL Neut % (Auto) 60.4 (50-75) % Lymph % (Auto) 24.4 L (25-40) % [place] % (Auto) 12.9 (3-14) % Eos % (Auto) 1.9 L (2-4) % Baso % (Auto) 0.4 (0-2) % Neut # (Auto) 4200 (4643-8063) /uL Lymph # (Auto) 1700 (5470-4962) /uL [place] # (Auto) 900 (0-900) /uL Eos # (Auto) 100 (0-450) /uL Baso # (Auto) 0 (0-100) /uL PT (10.1-12.7) SECONDS INR (0.9-1.3) APTT (26-36) SECONDS Sodium 138 (137-145) mmol/L Potassium 3.9 (3.4-5.1) mmol/L Chloride 105 (98-107) mmol/L Carbon Dioxide 25 (22-32) mmol/L BUN 26 H (9-20) mg/dL Creatinine 0.90 (0.66-1.25) mg/dL Estimated GFR > 60 (>60) mL/min BUN/Creatinine Ratio 28.9 H (6-22) Glucose 97 (80-110) mg/dL Calcium 9.1 (8.4-10.2) mg/dL Magnesium (1.6-2.3) mg/dL Total Bilirubin (0.2-1.3) mg/dL AST (17-59) IU/L ALT (<50) IU/L Alkaline Phosphatase (38-126) U/L Total Creatine Kinase (55-170) U/L Troponin I 0.014 (0.01-0.034) ng/mL Total Protein (6.3-8.2) g/dL Albumin (3.5-5.0) g/dL Globulin (1.7-4.1) g/dL Albumin/Globulin Ratio (1.0-2.8) Lipase (23-300) U/L TSH (0.47-4.68) uIU/mL MDM Narrative Medical decision making narrative: Patient here for palpitations and dizziness. Patient seen at [facility] emergency department yesterday. Given Adenocard and discharged home to follow up with [facility] EP Cardiology Dr. Sharma. No prescriptions were given. Patient denies any chest pain. No prior history of arrhythmia. After history and exam CBC CMP cardiology consult EKG Adenocard [facility] CC: Palpitations dizziness Complicating co-morbidities: Seen yesterday for arrhythmia Data collected from: Patient and Medical records reviewed: Patient ER visit yesterday at [facility], patient was given Adenocard and he converted to sinus rhythm. The provider there spoke with Dr. Parks with [facility] Cardiology, patient to follow up with EP Cardiology Dr. Sharma. No prescriptions provided. Differential considered: Includes but not limited to AFib flutter SVT Exam documented above, pertinent findings include: Tachycardia Lab Test results independently reviewed as above. Pertinent findings: Independently reviewed EKG EKG shows rate 173 SVT versus a flutter Imaging studies independently reviewed: Chest x-ray no acute finding Consultations: 5:00 p.m.. Spoke with cardiology dr julian,, he is reviewed patient's EKG. Recommends giving adenosine 6 mg, followed by metoprolol 5 mg IV. Admit for observation echocardiogram in the morning. He feels patient may be in a flutter. Patient did not respond to carotid massage here. Give Adenocard to slow down the rate. Hospitalist (Faye) happy to accept on her service Treatments: ASA, Adenocard, Metoprolol 5 Re-evaluations: after meds patient slows from 170s to 90s and sinus with PVCs Diagnosis: Palpitations 6:00 p.m. Shelia: Sign out to Dr Sánchez labs are pending. Needs admit [1800] (Gonzalo) Patient received in sign out from [Shelia]. I have reviewed the clinical course and performed an independent history and physical exam.Patient resting comfortably in sinus in the 60s-70s No significant lab abnormalities. Patient will require hospitalization given concern for possible new onset atrial flutter and discussion with Cardiology requesting overnight on telemetry with echocardiogram. Patient understands and agrees with the diagnosis and plan Discharge Plan Departure Patient Disposition: Admitted as Observation Clinical Impression: Atrial flutter Admit Date/Time: 11/24/22 12:32 Admit Provider: Scar Mckinney
[2022-11-21 18:45] LABS: Add Manual Diff / Slide Review NO; Basophils Absolute Auto 0 /uL (0-100); Basophils Percent Auto 0.4 % (0-2); Eosinophils Absolute Auto 100 /uL (0-450); Eosinophils Percent Auto 1.5 % (2-4); Hematocrit 47.1 % (41-53); Hemoglobin 15.9 g/dL (13.5-17.5); Lymphocytes Absolute Auto 1800 /uL (1100-4500); Lymphocytes Percent Auto 21.3 % (25-40); Mean Corpuscular HGB Conc 33.8 % (30-36); Mean Corpuscular Hemoglobin 29.9 PG (26-34); Mean Corpuscular Volume 88.3 fL (80-100); Monocytes Absolute Auto 1100 /uL (0-900); Neutrophils Absolute Auto 5500 /uL (1500-7000); Neutrophils Percent Auto 63.8 % (50-75); Platelet Count 206 X10^3/uL (150-400); Red Blood Cell Count 5.33 X10^6/uL (4.5-5.9); Red Cell Distribution Width 13.1 % (11.6-14.8); White Blood Cell Count 8.7 X10^3/uL (4.5-11.0)
[2022-11-21 18:56] LABS: INR 1.1 (0.9-1.3); Prothrombin Time 13.1 SECONDS (10.1-12.7)
[2022-11-21 18:58] LABS: Alanine Aminotransferase 20 IU/L (<50); Albumin Globulin Ratio 1.4 (1.0-2.8); Alkaline Phosphatase 80 U/L (38-126); Aspartate Aminotransferase 29 IU/L (17-59); BUN Creatinine Ratio 23.4 (6-22); Bilirubin Total 0.6 mg/dL (0.2-1.3); Blood Urea Nitrogen 25 mg/dL (9-20); Calcium 8.9 mg/dL (8.4-10.2); Carbon Dioxide 25 mmol/L (22-32); Chloride 107 mmol/L (98-107); Creatine Kinase 71 U/L (55-170); Estimated Glomerular Filt Rate > 60 mL/min (>60); Globulin 2.8 g/dL (1.7-4.1); Glucose 101 mg/dL (80-110); HEMOLYSIS 28 (0-50); Lipase 155 U/L (23-300); Potassium 3.9 mmol/L (3.4-5.1); Sodium 140 mmol/L (137-145); Total Protein 6.8 g/dL (6.3-8.2)
[2022-11-21 19:09] LABS: PTT Partial Thromboplastin Tim 35 SECONDS (26-36)
[2022-11-21 19:10] LABS: Troponin I 0.045 ng/mL (0.01-0.034)
--- NOTE | 2022-11-21 19:59 | PM.HP.1 ---
History of Present Illness History of Present Illness Chief complaint: high heart rate - ~ 190 Narrative: The patient is a very pleasant 86-year-old gentleman with significant past medical history for hypertension and dyslipidemia who presents due to tachyarrhythmia to the emergency room at [facility]. Per ED report, the patient has been seen in 2 emergency room's locally for tachyarrhythmias and was received adenosine and intravenous beta-blockers followed by discharge home and close follow-up. It would seem the patient has been in SVT. Prior to presenting in the ED, he was seen at a PCP office where he reports his heart rate was in the 180s. He was thus referred to the emergency room for additional evaluation. In the ER, the patient denies having any current chest pains or shortness of breath. He cannot appreciate an elevated high heart rate. However for the past 24 hours he reports a sense of uneasiness and wanted to get checked out. In the emergency room the patient was initially in SVT and received adenosine followed by metoprolol IV with good clinical response and that he converted to sinus rhythm. The ED attending discussed the case with on-call cardiology and an outpatient referral to cardiology was made to review SVT versus atrial flutter. Troponins 0.045 After admission when I was examining the patient, he again went into SVT 190 bpm. I gave adenosine 12 mg IV, metoprolol 5 mg IV after which the patient's heart rate was still in the 140s and 150s. Throughout this episode he remained asymptomatic on my watch. However, due to sustained heart rate in the 150s, I started him on diltiazem 20 mg IV followed by gtt. During the fuel management handler hours of November 22, 2022, the patient was bradycardic with no underlying conduction block. Heart rate in the 40s asymptomatic with normal blood pressure. At that point, we held the diltiazem. Patient denies having any fevers or chills. [facility] Medical History (Updated 11/21/22 @ 20:14 by Melissa Mercer RN) High cholesterol Hypertension Social History Smoking Status: Never smoker Meds Home Medications and Allergies Home Medications Medication Instructions Recorded Confirmed Type aspirin 81 mg tablet 81 mg PO DAILY 11/21/22 11/21/22 History atorvastatin 40 mg tablet 40 mg PO ONCE PM 11/21/22 11/21/22 History losartan 100 1 tab PO QAM 11/21/22 11/21/22 History mg-hydrochlorothiazide 12.5 mg tablet potassium chloride 10 mEq 10 meq PO DAILY 11/21/22 11/21/22 History tablet,extended release Allergies Allergy/AdvReac Type Severity Reaction Status Date / Time No Known Drug Allergies Allergy Verified 11/21/22 20:40 Review of Systems Review of Systems Narrative: ROS negative Exam Vital Signs (past 8 hours): - 11/21/22 16:48 11/21/22 16:56 11/21/22 17:00 Temperature 98.0 F Pulse Rate 186 H Respiratory Rate 16 Blood Pressure 144/99 H 109/82 116/93 H Pulse Oximetry 96 Oxygen Delivery Method Room Air 11/21/22 17:00 11/21/22 17:20 11/21/22 17:20 Temperature Pulse Rate 183 H 173 H Respiratory Rate 23 22 Blood Pressure 127/89 Pulse Oximetry 96 96 Oxygen Delivery Method 11/21/22 17:30 11/21/22 17:30 11/21/22 17:40 Temperature Pulse Rate 172 H 174 H Respiratory Rate 23 25 H Blood Pressure 122/81 Pulse Oximetry 94 94 Oxygen Delivery Method 11/21/22 17:40 11/21/22 17:50 11/21/22 17:50 Temperature Pulse Rate 176 H Respiratory Rate 30 H Blood Pressure 123/84 131/87 Pulse Oximetry 95 Oxygen Delivery Method 11/21/22 18:00 11/21/22 18:00 11/21/22 18:05 Temperature Pulse Rate 171 H Respiratory Rate 29 H Blood Pressure 127/89 188/84 H Pulse Oximetry 94 Oxygen Delivery Method 11/21/22 18:05 11/21/22 18:10 11/21/22 18:10 Temperature Pulse Rate 77 70 Respiratory Rate 22 22 Blood Pressure 155/78 H Pulse Oximetry 94 94 Oxygen Delivery Method 11/21/22 18:15 11/21/22 18:15 11/21/22 18:20 Temperature Pulse Rate 62 63 Respiratory Rate 17 22 Blood Pressure 158/74 H Pulse Oximetry 96 96 Oxygen Delivery Method 11/21/22 18:20 11/21/22 18:25 11/21/22 18:25 Temperature Pulse Rate 64 Respiratory Rate 21 Blood Pressure 145/74 H 154/72 H Pulse Oximetry 96 Oxygen Delivery Method 11/21/22 18:30 11/21/22 18:31 11/21/22 18:31 Temperature Pulse Rate 81 83 Respiratory Rate 20 26 H Blood Pressure 187/91 H Pulse Oximetry 97 96 Oxygen Delivery Method 11/21/22 18:41 11/21/22 18:41 11/21/22 18:45 Temperature Pulse Rate 67 Respiratory Rate 21 Blood Pressure 154/97 H 149/85 H Pulse Oximetry 95 Oxygen Delivery Method 11/21/22 18:45 11/21/22 18:50 11/21/22 18:50 Temperature Pulse Rate 61 60 Respiratory Rate 21 19 Blood Pressure 158/81 H Pulse Oximetry 95 95 Oxygen Delivery Method 11/21/22 18:55 11/21/22 18:55 11/21/22 19:00 Temperature Pulse Rate 64 Respiratory Rate 20 Blood Pressure 154/80 H 162/81 H Pulse Oximetry 96 Oxygen Delivery Method 11/21/22 19:00 11/21/22 19:05 11/21/22 19:05 Temperature Pulse Rate 61 63 Respiratory Rate 20 18 Blood Pressure 133/80 Pulse Oximetry 96 96 Oxygen Delivery Method 11/21/22 19:10 11/21/22 19:10 11/21/22 19:15 Temperature Pulse Rate 60 60 Respiratory Rate 16 21 Blood Pressure 143/88 H Pulse Oximetry 97 95 Oxygen Delivery Method 11/21/22 19:15 11/21/22 19:21 11/21/22 19:21 Temperature Pulse Rate 63 Respiratory Rate 22 Blood Pressure 161/77 H 174/91 H Pulse Oximetry 95 Oxygen Delivery Method 11/21/22 19:26 11/21/22 19:26 11/21/22 19:30 Temperature Pulse Rate 62 Respiratory Rate 21 Blood Pressure 179/86 H 161/84 H Pulse Oximetry 96 Oxygen Delivery Method 11/21/22 19:30 11/21/22 19:35 11/21/22 19:35 Temperature Pulse Rate 59 L 57 L Respiratory Rate 21 20 Blood Pressure 158/89 H Pulse Oximetry 95 96 Oxygen Delivery Method Oxygen Delivery Method Room Air Narrative Exam Narrative: Physical exam General exam the patient is conscious, cooperative and comfortable HEENT normocephalic atraumatic Neck exam supple Cardiovascular exam S1-S2 present tachycardic no murmur Lung exam bilateral equal expansion, clear bilaterally, no wheezing or distress, able to speak in full sentences Abdomen is soft, nontender, no guarding, no tenderness or rigidity. Bowel sounds are present throughout Neurological exam nonfocal Lower extremities are warm and well-perfused without edema Objective ECG Impression: reviewed tele strip reviewed SVT, NSR, SB Labs 11/21/22 16:50 11/21/22 16:50 Labs: Laboratory Results - last 24 hr 11/21/22 11/21/22 11/21/22 16:50 16:50 16:50 WBC 8.7 RBC 5.33 Hgb 15.9 Hct 47.1 MCV 88.3 MCH 29.9 MCHC 33.8 RDW 13.1 Plt Count 206 Neut % (Auto) 63.8 Lymph % (Auto) 21.3 L [place] % (Auto) 13.0 Eos % (Auto) 1.5 L Baso % (Auto) 0.4 Neut # (Auto) 5500 Lymph # (Auto) 1800 [place] # (Auto) 1100 H Eos # (Auto) 100 Baso # (Auto) 0 PT 13.1 H INR 1.1 APTT 35 Sodium 140 Potassium 3.9 Chloride 107 Carbon Dioxide 25 BUN 25 H Creatinine 1.07 Estimated GFR > 60 BUN/Creatinine Ratio 23.4 H Glucose 101 Calcium 8.9 Magnesium 2.0 Total Bilirubin 0.6 AST 29 ALT 20 Alkaline Phosphatase 80 Total Creatine Kinase 71 Troponin I 0.045 H Total Protein 6.8 Albumin 4.0 Globulin 2.8 Albumin/Globulin Ratio 1.4 Lipase 155 Assessment & Plan Assessment & Plan narrative: Acute: SVT versus atrial flutter, asymptomatic. Currently has converted to sinus bradycardia and therefore intravenous diltiazem GTT was held. TTE in AM. Serial cardiac enzymes. Check TSH. Outpatient cardiology evaluation plan already set between ER attending and outpatient cardiology. However, if the patient continues to have bursts of RVR, he may benefit from revisiting cardiology evaluation sooner. Start metoprolol tartrate 25 mg p.o. twice daily Rate related elevated troponin 0.045. Chronic Dyslipidemia on statin Hypertension on losartan and hydrochlorothiazide Primary preventative therapy aspirin 81 mg p.o. daily Consultants: Outpatient cardiology appointment CODE FULL CODE DVT prophylaxis Lovenox 40 Time Spent With Patient Time with patient: 70 minutes or more, with 50% spent counseling/coordinating
[2022-11-21] MEDS: ATORVASTATIN 20 MG TABLET 40 MG PO (22:26)
[2022-11-21] MEDS: METOPROLOL TARTRATE 5 MG/5 ML INJ IV (23:27)
[2022-11-21] MEDS: ADENOSINE 6 MG/2 ML VIAL 12 MG IV (23:32)
[2022-11-21] MEDS: dilTIAZem 5 MG/ML SDV 20 MG IV (23:44)
[2022-11-21] MEDS: DILTIAZEM 125 MG/125 ML PIGGYBACK IV (23:44)
[2022-11-22] VITALS (72 sets, daily range): BP systolic 147–210; BP diastolic 79–112; PULSE 42–98; RESP 12–24; TEMP 36.6–36.7; O2SAT 92–98
--- NOTE | 2022-11-22 00:06 | PC.NURSE ---
Pt noted to go into a tachycardiac arrythmia at 2318. Attempted vagal maneuvers with no success. Pt asymptomatic with no complaints or feelings of palpitation. Hospitalist, Dr. Mckinney, messaged through webex and telemonitor to the bedside. IV dose 5mg metoprolol no success, adenosine rapid IVP no success. Dilt bolus given with return to NSR/SB with PVCs at 2346. Diltiazem 5mg/hr drip initiated per APR. Pt continues to have no complaints and feels at baseline.
--- NOTE | 2022-11-22 01:34 | PC.NURSE ---
Patient's heart rate sustaining between 45-[address] Mckinney notified at 01:31. Dr. Mckinney told to pause diltiazem. Diltiazem paused at 01:33. Patient's HR at 61 at 01:38.
--- NOTE | 2022-11-22 02:27 | PC.NURSE ---
0157: patient's HR sustaining at low-mid 40's. Patient asymptomatic. Dr. Mckinney notified and sent tele strip at 02:02. No new orders at this time, just to keep monitoring patient
[2022-11-22 05:03] LABS: BUN Creatinine Ratio 26.7 (6-22); Blood Urea Nitrogen 23 mg/dL (9-20); Calcium 8.1 mg/dL (8.4-10.2); Carbon Dioxide 25 mmol/L (22-32); Chloride 107 mmol/L (98-107); Estimated Glomerular Filt Rate > 60 mL/min (>60); Glucose 98 mg/dL (80-110); HEMOLYSIS 29 (0-50); Potassium 3.8 mmol/L (3.4-5.1); Sodium 139 mmol/L (137-145)
--- NOTE | 2022-11-22 06:33 | PC.NURSE ---
Notified Dr. Mckinney about patient's BP 198/88. Dr. Mckinney told to give all morning meds now. See MAR
--- NOTE | 2022-11-22 07:03 | PC.NURSE ---
Parameter from Dr. Mckinney to hold metoprolol for HR less than 55bpm.
[2022-11-22] MEDS: LOSARTAN 50 MG TABLET 100 MG PO (07:05)
[2022-11-22] MEDS: ASPIRIN 81 MG CHEW TAB PO (07:05)
[2022-11-22] MEDS: ENOXAPARIN 40 MG/0.4 ML SYRINGE SUBCUT (07:06)
[2022-11-22] MEDS: hydroCHLOROthiazide 25 MG TABLET 12.5 MG PO (07:06)
[2022-11-22] MEDS: POTASSIUM CHLORIDE 10 MEQ TAB PO (07:07)
--- NOTE | 2022-11-22 07:53 | PC.NURSE ---
Patient had the urge to have a BM. Patient placed on bedpan due to HR and concern for ambulating. He was able to pass a lot of gas and no longer has the urge to have a BM. Pt also used the urinal with 275cc output. Pt updated about waiting for admission upstairs and echo.
--- NOTE | 2022-11-22 08:08 | PC.NURSE ---
Throughout the night patient had boughts of SVT and after receiving IV medications became bradycardic in the 40's. Pt currently sustaining HR between 48-55, denies pain, chest pain or SOB. Pt's cell phone is plugged in to used car renovator at ER doctor desk. Patient A&O x4 and asked me to reach out to his dAela to update her.
--- NOTE | 2022-11-22 08:20 | P.PN_ITS ---
Subjective Subjective Interval history: Patient feeling well. HR has been well-controlled today with no runs of VT or A- fib. Exam Vital Signs (past 8 hours): - 11/22/22 00:30 11/22/22 00:31 11/22/22 00:31 Pulse Rate 61 61 Respiratory Rate 22 22 Blood Pressure 154/89 H Pulse Oximetry 92 93 Oxygen Delivery Method Room Air 11/22/22 01:00 11/22/22 01:01 11/22/22 01:01 Pulse Rate 56 L 58 L Respiratory Rate 20 20 Blood Pressure 175/81 H Pulse Oximetry 92 93 Oxygen Delivery Method Room Air 11/22/22 01:05 11/22/22 01:10 11/22/22 01:15 Pulse Rate 51 L 52 L 59 L Respiratory Rate 18 21 21 Blood Pressure Pulse Oximetry 92 92 92 Oxygen Delivery Method 11/22/22 01:20 11/22/22 01:25 11/22/22 01:30 Pulse Rate 52 L 60 45 L Respiratory Rate 18 24 17 Blood Pressure Pulse Oximetry 93 93 93 Oxygen Delivery Method 11/22/22 01:30 11/22/22 01:40 11/22/22 02:00 Pulse Rate 46 L Respiratory Rate 19 Blood Pressure 157/112 H 147/99 H Pulse Oximetry 93 Oxygen Delivery Method 11/22/22 02:00 11/22/22 02:20 11/22/22 02:31 Pulse Rate 43 L 45 L 45 L Respiratory Rate 18 20 18 Blood Pressure Pulse Oximetry 96 94 95 Oxygen Delivery Method Room Air Room Air 11/22/22 02:31 11/22/22 02:40 11/22/22 03:00 Pulse Rate 44 L 48 L Respiratory Rate 16 20 Blood Pressure 175/81 H Pulse Oximetry 95 95 Oxygen Delivery Method 11/22/22 03:01 11/22/22 03:01 11/22/22 03:20 Pulse Rate 46 L 43 L Respiratory Rate 17 14 Blood Pressure 159/100 H Pulse Oximetry 95 95 Oxygen Delivery Method 11/22/22 03:31 11/22/22 03:31 11/22/22 03:40 Pulse Rate 43 L 42 L Respiratory Rate 16 13 Blood Pressure 159/81 H Pulse Oximetry 97 96 Oxygen Delivery Method 11/22/22 04:00 11/22/22 04:01 11/22/22 04:01 Pulse Rate 47 L 50 L Respiratory Rate 17 20 Blood Pressure 161/82 H Pulse Oximetry 97 96 Oxygen Delivery Method 11/22/22 04:20 11/22/22 04:31 11/22/22 04:31 Pulse Rate 50 L 48 L Respiratory Rate 19 18 Blood Pressure 210/89 H Pulse Oximetry 97 96 Oxygen Delivery Method 11/22/22 04:34 11/22/22 04:34 11/22/22 04:40 Pulse Rate 48 L 50 L Respiratory Rate 20 23 Blood Pressure 171/92 H Pulse Oximetry 96 98 Oxygen Delivery Method 11/22/22 04:59 11/22/22 05:00 11/22/22 05:00 Pulse Rate 47 L 47 L Respiratory Rate 12 13 Blood Pressure 185/83 H Pulse Oximetry 97 98 Oxygen Delivery Method 11/22/22 05:20 11/22/22 05:40 11/22/22 06:00 Pulse Rate 55 L 48 L 47 L Respiratory Rate 14 15 17 Blood Pressure Pulse Oximetry 97 97 96 Oxygen Delivery Method Room Air 11/22/22 06:01 11/22/22 06:01 11/22/22 07:05 Pulse Rate 46 L 50 L Respiratory Rate 17 Blood Pressure 198/88 H 198/88 H Pulse Oximetry 95 Oxygen Delivery Method Room Air 11/22/22 07:00 11/22/22 07:00 11/22/22 07:20 Pulse Rate 47 L 53 L Respiratory Rate 15 21 Blood Pressure 187/90 H Pulse Oximetry 96 95 Oxygen Delivery Method Room Air 11/22/22 07:40 11/22/22 08:00 11/22/22 08:00 Pulse Rate 81 51 L Respiratory Rate 19 Blood Pressure 186/91 H Pulse Oximetry 95 96 Oxygen Delivery Method Room Air Room Air Oxygen Delivery Method Room Air Narrative Exam Narrative: Physical exam General exam the patient is conscious, cooperative and comfortable HEENT normocephalic atraumatic Neck exam supple Cardiovascular exam S1-S2 present bradycardiac, no murmur Lung exam bilateral equal expansion, clear bilaterally, no wheezing or distress, able to speak in full sentences Abdomen is soft, nontender, no guarding, no tenderness or rigidity. Bowel sounds are present throughout Neurological exam nonfocal Lower extremities are warm and well-perfused without edema Objective Labs 11/21/22 16:50 11/22/22 04:24 Labs: Laboratory Results - last 24 hr 11/21/22 11/21/22 11/21/22 16:50 16:50 16:50 WBC 8.7 RBC 5.33 Hgb 15.9 Hct 47.1 MCV 88.3 MCH 29.9 MCHC 33.8 RDW 13.1 Plt Count 206 Neut % (Auto) 63.8 Lymph % (Auto) 21.3 L [place] % (Auto) 13.0 Eos % (Auto) 1.5 L Baso % (Auto) 0.4 Neut # (Auto) 5500 Lymph # (Auto) 1800 [place] # (Auto) 1100 H Eos # (Auto) 100 Baso # (Auto) 0 PT 13.1 H INR 1.1 APTT 35 Sodium 140 Potassium 3.9 Chloride 107 Carbon Dioxide 25 BUN 25 H Creatinine 1.07 Estimated GFR > 60 BUN/Creatinine Ratio 23.4 H Glucose 101 Calcium 8.9 Magnesium 2.0 Total Bilirubin 0.6 AST 29 ALT 20 Alkaline Phosphatase 80 Total Creatine Kinase 71 Troponin I 0.045 H Total Protein 6.8 Albumin 4.0 Globulin 2.8 Albumin/Globulin Ratio 1.4 Lipase 155 11/22/22 04:24 WBC RBC Hgb Hct MCV MCH MCHC RDW Plt Count Neut % (Auto) Lymph % (Auto) [place] % (Auto) Eos % (Auto) Baso % (Auto) Neut # (Auto) Lymph # (Auto) [place] # (Auto) Eos # (Auto) Baso # (Auto) PT INR APTT Sodium 139 Potassium 3.8 Chloride 107 Carbon Dioxide 25 BUN 23 H Creatinine 0.86 Estimated GFR > 60 BUN/Creatinine Ratio 26.7 H Glucose 98 Calcium 8.1 L Magnesium Total Bilirubin AST ALT Alkaline Phosphatase Total Creatine Kinase Troponin I Total Protein Albumin Globulin Albumin/Globulin Ratio Lipase [facility] Medical History (Updated 11/21/22 @ 20:14 by Melissa Mercer RN) High cholesterol Hypertension Social History household members: spouse Smoking Status: Never smoker alcohol intake: never Assessment & Plan Assessment & Plan narrative: Acute: SVT versus atrial flutter, asymptomatic. Currently has converted to sinus bradycardia and therefore intravenous diltiazem GTT was held. TTE pending. Serial cardiac enzymes. TSH normal. Outpatient cardiology evaluation plan already set between ER attending and outpatient cardiology. However, if the patient continues to have bursts of RVR, he may benefit from revisiting cardiol ogy evaluation sooner. Started metoprolol 12.5mg XL daily. Very hypertensive so amlodipine 10mg daily added with hydralazine IV PRN. Rate related elevated troponin 0.045. Chronic Dyslipidemia on statin Hypertension on losartan and hydrochlorothiazide, plus amlodipine and hydralazine PRN Stopped aspirin 81 mg p.o. daily due to eliquis Consultants: Outpatient cardiology appointment FULL CODE DVT prophylaxis: Eliquis Time Spent With Patient Time with patient: 70 minutes or more, with 50% spent counseling/coordinating
[2022-11-22 09:22] LABS: TSH w/ Reflex to FT4 1.96 uIU/mL (0.47-4.68)
--- NOTE | 2022-11-22 09:52 | PC.NURSE ---
Patient stood at bedside and initially felt lightheaded. after a few seconds he was no longer lightheaded. HR 70-93 standing. Patient ambulated to bathroom and back to bed with no complaints of chest pain or lightheaded after the initial event. Provider made aware of patient's resting HR 50-54. New med orders regarding metoprolol, see MAR.
[2022-11-22] MEDS: APIXABAN 5 MG TABLET PO ×2 (09:59→21:15)
[2022-11-22] MEDS: POTASSIUM CHLORIDE 20 MEQ TAB 40 MEQ PO (09:59)
[2022-11-22] MEDS: METOPROLOL ER 25 MG TABLET 12.5 MG PO (10:08)
[2022-11-22] MEDS: HYDRALAZINE 20 MG/ML VIAL 10 MG IV ×2 (12:18→19:03)
--- NOTE | 2022-11-22 12:52 | DI.ECHO.S_ITS ---
[facility]---------+ [facility] +---------+ : : [address] : : : : [id number] : : : : Phone: [phone] Echocardiogram Report + + :Name: DONY ROBBINS Study Date: 11/23/2022 Height: 70 in : :[facility] ReadingLocation: Weight: 180 lb : : Gender: Male BSA: 2.0 m2 : :: 1935 Age: 86 yrs BP: 187/84 mmHg: :Reason For Study: Atrial Fibrillation : :Ordering Physician: LINDEN, : :JANNY Gilbert Performed By: Sophia Edwards : :Referring: JANNY CHEATHAM : + + Interpretation Summary Normal sinus rhythm with heart rate 54 bpm - 90 bpm. Normal LV size and wall thickness. Normal wall motion and LV systolic function. Ejection fraction is 55-60%. Stage I diastolic dysfunction. No significant valvular abnormalities. Normal chamber sizes. No prior study available for comparison. Procedure: A two-dimensional transthoracic echocardiogram with color flow and Doppler was performed. The study quality was technically adequate. There is no prior echocardiogram noted for this patient. The patient had occasional PVCs during the exam. The patient was in normal sinus rhythm during the exam. Left Ventricle: The left ventricle is normal in size. The ejection fraction is estimated to be 55-60%. Diastolic parameters suggest a relaxation abnormality of the left ventricle, consistent with probable normal filling pressures. Right Ventricle: The right ventricle is normal in size and function. Atria: The left atrium is mildly dilated. Right atrial size is normal. There is no Doppler evidence for an interatrial shunt. Mitral Valve: The mitral valve is normal. There is no mitral valve stenosis. There is trace mitral regurgitation. Aortic Valve: The aortic valve is trileaflet. The aortic valve opens well. There is mild aortic valve sclerosis. There is no aortic valve stenosis. No aortic regurgitation is present. Tricuspid Valve: The tricuspid valve is not well visualized. There is no tricuspid stenosis. There is trace tricuspid regurgitation. The right ventricular systolic pressure is estimated to be at least 32 mmHg based on an estimated right atrial pressure of 3 mm Hg. Pulmonic Valve: The pulmonic valve is not well visualized. There is no pulmonic valvular stenosis. There is no pulmonic valvular regurgitation. Great Vessels: The aortic root is normal size. The ascending aorta is normal in size. The pulmonary artery is normal size. The IVC is of normal diameter and collapses greater than 50% with a sniff. This suggests a low right atrial pressure of 3 mm Hg. Pericardium/ Pleura There is no pericardial effusion. There is no pleural effusion. MMode/2D Measurements & Calculations LVIDd: 4.9 cm LVOT diam: 1.9 cm LVIDs: 3.1 cm Ao root diam: 3.3 cm FS: 36.7 % asc Aorta Diam: 3.2 cm IVSd: 0.90 cm LVPWd: 0.80 cm LV brasher. diameter/BSA (cm/m^2): 2.5 LV sys. diameter/BSA (cm/m^2): 1.6 LA A2 area: 22.0 cm2 RA long axis: 5.0 cm LA A4 area: 18.5 cm2 RA area: 14.1 cm2 LA length (vol): 5.9 cm RA vol: 33.6 ml LA vol: 58.5 ml RA : 16.8 ml/m2 LA vol index: 29.3 ml/m2 RVD1 (basal): 3.5 cm LVLs ap4: 6.6 cm LVLd ap2: 7.9 cm TAPSE_phl: 2.0 cm LVLs ap2: 6.7 cm Doppler Measurements & Calculations Ao V2 max: 161.0 cm/sec LVOT Max Marcelino: 133.0 cm/sec Ao V2 mean: 110.0 cm/sec LV V1 max P.1 mmHg Ao max P.0 mmHg LV V1 VTI: 31.1 cm Ao mean P.7 mmHg BELINDA(I,D): 2.3 cm2 Ao V2 VTI: 38.4 cm BELINDA(V,D): 2.3 cm2 sev ratio: 0.81 BELINDA indexed to BSA (cm^2/m^2): 1.2 MV E max marcelino: 69.1 cm/sec TR max marcelino: 270.0 cm/sec MV A max marcelino: 91.7 cm/sec TR max P.2 mmHg MV E/A: 0.75 PA V2 max: 111.0 cm/sec Med Peak E' Marcelino: 6.4 cm/sec PA V2 mean: 78.0 cm/sec E/E' med: 10.7 PA mean P.0 mmHg Lat Peak E' Marcelino: 11.0 cm/sec PA pr(Accel): 29.0 mmHg E/E' lat: 6.3 E/e' average: 8.5 MV dec time: 0.27 sec SV(LVOT): 88.2 ml AV VR_phl: 0.83 BELINDA(VTI)/BSA_phl: 1.1 Electronically signed by: Cielo Martin M.D. on Reading Physician:11/23/2022 01:05 PM
--- NOTE | 2022-11-22 12:57 | PC.NURSE ---
Phone call was placed to echo to ask about schedule for patients echo, which they state they do not have an order for. Provider made aware.
--- NOTE | 2022-11-22 14:42 | PC.NURSE ---
1350 - Dr. Kent made aware of patient's vitals. Patient resting comfortably with at bedside, will continue to monitor.
[2022-11-22] MEDS: AMLODIPINE 5 MG TABLET 10 MG PO (15:40)
[2022-11-22] MEDS: QUETIAPINE 25 MG TABLET PO ×2 (19:03→21:15)
[2022-11-22] MEDS: ATORVASTATIN 20 MG TABLET 40 MG PO (21:15)
[2022-11-23] VITALS (9 sets, daily range): BP systolic 105–180; BP diastolic 55–85; PULSE 59–78; RESP 18–20; TEMP 36.1–37.1; O2SAT 92–96
[2022-11-23 07:53] LABS: Add Manual Diff / Slide Review NO; Basophils Absolute Auto 0 /uL (0-100); Basophils Percent Auto 0.7 % (0-2); Eosinophils Absolute Auto 100 /uL (0-450); Eosinophils Percent Auto 1.1 % (2-4); Hematocrit 47.3 % (41-53); Lymphocytes Absolute Auto 1800 /uL (1100-4500); Lymphocytes Percent Auto 24.8 % (25-40); Mean Corpuscular HGB Conc 33.8 % (30-36); Mean Corpuscular Hemoglobin 29.9 PG (26-34); Mean Corpuscular Volume 88.3 fL (80-100); Monocytes Absolute Auto 1000 /uL (0-900); Monocytes Percent Auto 13.9 % (3-14); Neutrophils Absolute Auto 4200 /uL (1500-7000); Neutrophils Percent Auto 59.5 % (50-75); Platelet Count 189 X10^3/uL (150-400); Red Blood Cell Count 5.35 X10^6/uL (4.5-5.9); Red Cell Distribution Width 13.3 % (11.6-14.8); White Blood Cell Count 7.1 X10^3/uL (4.5-11.0)
[2022-11-23 08:06] LABS: Blood Urea Nitrogen 19 mg/dL (9-20); Calcium 8.9 mg/dL (8.4-10.2); Carbon Dioxide 24 mmol/L (22-32); Chloride 106 mmol/L (98-107); Estimated Glomerular Filt Rate > 60 mL/min (>60); Glucose 97 mg/dL (80-110); HEMOLYSIS < 15 (0-50); Potassium 3.9 mmol/L (3.4-5.1); Sodium 137 mmol/L (137-145)
[2022-11-23 08:14] LABS: Magnesium 1.8 mg/dL (1.6-2.3)
[2022-11-23] MEDS: MAGNESIUM SULFATE 2 GM/50 ML PIGGYBACK IV (09:16)
[2022-11-23] MEDS: METOPROLOL ER 25 MG TABLET PO (09:17)
[2022-11-23] MEDS: LOSARTAN 50 MG TABLET 100 MG PO (09:17)
[2022-11-23] MEDS: APIXABAN 5 MG TABLET PO (09:17)
[2022-11-23] MEDS: hydroCHLOROthiazide 25 MG TABLET 12.5 MG PO (09:17)
[2022-11-23] MEDS: POTASSIUM CHLORIDE 10 MEQ TAB PO (09:18)
[2022-11-23] MEDS: AMLODIPINE 5 MG TABLET 10 MG PO (09:18)
[2022-11-23] MEDS: HYDRALAZINE 20 MG/ML VIAL 10 MG IV (09:19)
--- NOTE | 2022-11-23 09:25 | OT.IP.EVAL ---
Past Medical History (Last Updated 11/21/22 @ 20:14 by Melissa Mercer RN) High cholesterol Hypertension Occupational Therapy Inpatient Evaluation/Re-Eval M1 PT/OT-IP Prior Functional Status Start: 11/23/22 11:36 Freq: NEEDED Status: Active Protocol: Document 11/23/22 08:50 [facility] (Rec: 11/23/22 11:57 [facility] [id number]) Medical Review Prior Functional Status Communication Independent Mobility and Gait Independent with no devices. Activities of Daily Living and IADL's Completely independent with all ADL, IADL, and drives. Social History Household Members spouse Living Arrangements House Number of Stairs To Enter/Railing? Pt has 3 steps with right rail to get into the his house. Home Environment High Toilet,Walk in Shower Home Equipment Grab Bars Near Toilet,Grab Bars In Shower M2 OT-IP Current Condition Start: 11/23/22 11:36 Freq: Status: Active Protocol: Document 11/23/22 08:50 [facility] (Rec: 11/23/22 11:57 [facility] [id number]) Occupational Therapy Current Condition Current Condition Evaluation Date 11/23/22 Treatment Diagnosis SVT versus atrial flutter Diagnosis Onset Date 11/21/22 M3 OT- IP Subjective and Pain Start: 11/23/22 11:36 Freq: Status: Active Protocol: Document 11/23/22 08:50 [facility] (Rec: 11/23/22 11:57 [facility] [id number]) OT- Subjective Occupational Therapy Visit Type Type Initial Evaluation Visit Start Time 08:50 Visit Stop Time 09:25 Total Visit Minutes 35 Occupational Therapy Visit Comments Patient Comments Pt agreed to do cognitive assessment as requested by the hospitalist. Patient/Caregiver Goals TO go home. OT Pain Assessment Pain When Pain Assessed At Rest Pain Present Pain Present Denied Pain M4 OT- IP ADL's Start: 11/23/22 11:36 Freq: Status: Active Protocol: Document 11/23/22 08:50 [facility] (Rec: 11/23/22 11:57 [facility] [id number]) OT OLD-Awsb-Mcfjpzw General Evaluation Self-Feeding Ability Independent OT ADL-Grooming General Evaluation Grooming Ability Independent OT ADL-Oral Care General Eval Oral Care Ability Independent OT ADL-Dressing General Eval Lower Body Dressing Ability Independent OT ADL-Toileting General Evaluation Toileting Ability Independent OT ADL-Bathing Comments OT Bathing Comments Not performed. M5 OT- IP IADL's Start: 11/23/22 11:36 Freq: Status: Active Protocol: Document 11/23/22 08:50 [facility] (Rec: 11/23/22 11:57 [facility] [id number]) OT-Instrumental Activities of Daily Living Deficits IADL Deficits Identified No Deficits Home Safety Awareness Awareness of Need for Assistance at Home Good Awareness Ability to Problem Solve Emergency Able to Problem Solve Situations Money Management Money Management No Deficits Identified Meal Preparation Meal Preparation No Deficits Identified Grain Oilseed Or Pasture Farm Manager Grain Oilseed Or Pasture Farm Manager No Deficits Identified M6 OT- IP Functional Cognition Start: 11/23/22 11:36 Freq: Status: Active Protocol: Document 11/23/22 08:50 [facility] (Rec: 11/23/22 11:57 [facility] [id number]) Cognitive Factors Limiting Selfcare Function Cognitive Ability Level of Alertness Alert Patient Orientation Name,Age,Birthday,Month,Date, Year,Day of Week,Place, Situation Attention Span Ability Capable of Focused Attention, Capable of Sustained Attention Ability to Follow Commands Able to Follow Multi-Step Commands Memory Description Short Term Impaired Safety Awareness No Deficits Noted Problem Solving Ability No deficits Noted Executive Function Ability No Deficits Noted Cognitive Tests SLUMS Pt scored 22/30 which implies mild neurocognitive deficits. Pt not able to recall any of the 5 objects after time passed, able to state 12 objects after one minute, and able to answer 3/4 objects right after a paragraph read. Pt admit that he is forgetful at times. Able to give pt information for memory strategies. Cognitive Comments Cognitive Assessment Comments Pt scored 102 sec on [place] Making Part B which is 70% for his age and implies mild impairment for visual attention, speed of processing , task switching, executive functioning, and mental flexibility. Pt's family present when giving pt information of memory strategies to try to incorporate during his needs. OT- Vision and Hearing OT- Hearing Assessment OT- Hearing Assessment WFL OT- Vision Assessment Visual Acuity Glasses All The Time Visual Attentiveness WFL Occular Pursuits WFL Visual Convergence WFL Visual Castillo WFL M7 OT- IP Mobility and Balance Start: 11/23/22 11:36 Freq: Status: Active Protocol: Document 11/23/22 08:50 [facility] (Rec: 11/23/22 11:57 [facility] [id number]) OT- Bed Mobility Assessment Supine to Sit Supine to Sit Assist Independent Sit to Supine Sit to Supine Assist Independent OT-Transfer Assessment Sit to and From Stand Sit to and from Stand Independent Transfers Transfer Ability Independent Technique Transfer Destination Bed,Toilet Transfer Technique Stand Step Pivot Devices Transfer Assistive Devices None Comments Mobility Comments Pt initially needing a moment to stand after getting up from the bed and then initially use of counter and bed to hold to and then did not need after surfaces to hold. OT- Gait Assessment Gait Gait Assistance Required: Independent Assistive Devices Assistive Device None OT- Balance Assessment Sitting Balance and Reactions Static Sitting Balance Ability Normal Dynamic Sitting Balance Ability Normal Standing Balance and Reactions Static Standing Balance Ability Good Dynamic Standing Balance Ability Good M8 OT- IP Objective Assessments Start: 11/23/22 11:36 Freq: Status: Active Protocol: Document 11/23/22 08:50 [facility] (Rec: 11/23/22 11:57 [facility] [id number]) OT Gross Range of Motion Upper Extremity Range of Motion Assessment Left Impaired ROM Impairments Pt has history of Left rotator cuff repair which is still limited in ROM and strength at his shoulder OT Strength Upper Extremity Strength Assessment Left Impaired OT- Coordination Assessment Upper Extremity Finger to Nose Test Within Functional Limits M9 OT- IP Assessment and Plan Start: 11/23/22 11:36 Freq: Status: Active Protocol: Document 11/23/22 08:50 [facility] (Rec: 11/23/22 11:57 [facility] [id number]) OT Summary Assessment and Plan Potential Rehabilitation Potential Excellent Analytic Complexity at Evaluation Low Summary OT Impairments Functional Cognition, Functional Mobility Progress Towards Goals Progressing Toward Goals Assessment Summary Pt low complexity and here due to SVT versus atrial flutter. Hospitalist requested SLUMS on pt and her scored 22 main having issues with his short term memory. A score on 22 implies mild neurocognitive deficits. Pt scored 102 sec on [place] Making Part B which is 70% for his age and implies mild impairment for visual attention, speed of processing , task switching, executive functioning, and mental flexibility. Pt looking to go home when medically stable. Pt given information for memory strategies. Goals Bathing Goal Independent OT-Other Goals Pt to be independent to incorporate his memory strategies during ADl and mobility needs. Days to Meet Goals 1 Frequency of Treatment Frequency Of Treatment Once a Day Treatment Plan OT Treatment Plan Functional Cognition Training, Functional Mobility Other Treatment Recommendations and Next Pt able to do 3 steps with Treatment Focus right rail going down. Discharge Recommendations OT Discharge Recommendations Home with Assistance Transportation Needs at Discharge Private Vehicle
[2022-11-23] MEDS: METOPROLOL IR 25 MG TABLET PO ×2 (11:45→17:14)
--- NOTE | 2022-11-23 12:31 | CM.DANOTE ---
Initial DCP Assessment Note Reviewed EMR and team rounds for pt's medical status and anticipated home d/c needs. Met with pt, spouse, and son at bedside to introduce self and role, pt found to be alert, oriented, and actively involved in his decision-making needs. Payor: Medicare PCP: Chinmay Morris Admitting: Dr. Mckinney Pt is a 86-year old M admitted for persistent heart palpitations and dizziness over the last 3-days. Pt's medical history includes hypertension and dyslipidemia. He was seen on 11/20/22 at [facility] ER, was evaluated, given Adenocard, and d/c'd home with a plan for OP f/u with [facility] EP Cardiology Dr. Sharma. He then presented here at ED with worsening symptoms. Dr. Diaz was consulted and recommendations were for inpt evaluation and tx. Pt denies any need for support or resources when he is ready for d/c home, OT eval completed and does not recommend any OP therapies at this time. Will plan continue to monitor for further d/c needs. Discharge Planning/Care Management CM Discharge Assessment Start: 11/23/22 12:23 Freq: Status: Active Protocol: Document 11/23/22 12:23 [facility] (Rec: 11/23/22 12:31 [facility] [id number]) Discharge Planning Assessment Assigned Senior Finance Manager BOZENA Richards Advance Directives? No History Provided By Patient,Family Member Expected Length of Stay 2 Has Patient been admitted in last 30 No days? Prior Living Arrangements House Comment Lives independently at home with his spouse. Household Members spouse Type of transporation used prior to Drives own vehicle admit Independent with ADL's Yes Is patient alert and oriented? Yes Comment N/A Caregiver for Another No Comment N/A Comment OP Cardiology Appt. Barriers to Discharge No Discharge Plan Home Referrals Initiated None needed Whiteboard Updated in Patient Room with Yes name and ext. # of Senior Finance Manager Review Status In Process Please Provide Date Initial DC 11/23/22 Assessment Was Performed
--- NOTE | 2022-11-23 15:41 | PM.PN.1 ---
Subjective Subjective Interval history: Patient had 15 minute run of SVT then returned to NSR in 60's. Metoprolol po and IV metop PRN ordered. Echo returned as normal. Patient has no complaints today. Exam Vital Signs (past 8 hours): - 11/23/22 09:17 11/23/22 09:19 11/23/22 09:33 Temperature 98.7 F Pulse Rate 78 78 62 Respiratory Rate 18 Blood Pressure 180/85 H 180/85 H 180/85 H Pulse Oximetry 94 11/23/22 10:00 11/23/22 10:00 11/23/22 13:00 Temperature 98.4 F Pulse Rate 68 59 L Respiratory Rate 18 Blood Pressure 112/68 112/60 105/62 Pulse Oximetry 95 Oxygen Delivery Method Room Air Oxygen Flow Rate 0 Narrative Exam Narrative: Physical exam General exam the patient is conscious, cooperative and comfortable HEENT normocephalic atraumatic Neck exam supple Cardiovascular exam S1-S2 present bradycardiac, no murmur Lung exam bilateral equal expansion, clear bilaterally, no wheezing or distress, able to speak in full sentences Abdomen is soft, nontender, no guarding, no tenderness or rigidity. Bowel sounds are present throughout Neurological exam nonfocal Lower extremities are warm and well-perfused without edema Objective Labs 11/23/22 07:48 11/23/22 07:48 Labs: Laboratory Results - last 24 hr 11/23/22 11/23/22 11/23/22 07:48 07:48 07:48 WBC 7.1 RBC 5.35 Hgb 16.0 Hct 47.3 MCV 88.3 MCH 29.9 MCHC 33.8 RDW 13.3 Plt Count 189 Neut % (Auto) 59.5 Lymph % (Auto) 24.8 L [place] % (Auto) 13.9 Eos % (Auto) 1.1 L Baso % (Auto) 0.7 Neut # (Auto) 4200 Lymph # (Auto) 1800 [place] # (Auto) 1000 H Eos # (Auto) 100 Baso # (Auto) 0 Sodium 137 Potassium 3.9 Chloride 106 Carbon Dioxide 24 BUN 19 Creatinine 0.76 Estimated GFR > 60 BUN/Creatinine Ratio 25.0 H Glucose 97 Calcium 8.9 Magnesium 1.8 PFSH Medical History (Updated 11/21/22 @ 20:14 by Melissa Merecr RN) High cholesterol Hypertension Social History household members: spouse Smoking Status: Never smoker alcohol intake: never Assessment & Plan Assessment & Plan narrative: Acute: SVT runs per EP cardiology, asymptomatic. Serial cardiac enzymes normal. TSH normal. Echo reassuring with EF 55-60%, stage 1 diastolic dysfunction. Keeping mag >2 and K >4. Outpatient cardiology evaluation plan already set between ER attending and outpatient cardiology. Very hypertensive so amlodipine 10mg daily added with hydralazine IV PRN. Had run of SVT on 11/23 so metoprolol increased to 25mg q6h with IV pushes PRN. Rate related elevated troponin 0.045. Chronic Dyslipidemia on statin Hypertension on losartan and hydrochlorothiazide, plus amlodipine and hydralazine PRN Stopped aspirin 81 mg p.o. daily due to honey Consultants: Outpatient cardiology appointment FULL CODE DVT prophylaxis: HSQ Dispo: Home on 11/24 if no more SVT. Time Spent With Patient Time with patient: 70 minutes or more, with 50% spent counseling/coordinating Quality VTE Deep Vein Thrombosis/Pulmonary Embolism Present on Admission: No
--- NOTE | 2022-11-23 19:58 | PC.NURSE ---
Cardiac: Earlier this am had a brief increase in heart rate to 170's for about 15 mins. ICU called. MD made aware, see new orders. Vss. Pt had no c/p, no heart fluttering or any signs the heart rate was elevated during this time. Early evening had an 8 beat run of VT, ICU Joyce RN had called Dr. Kent about same. Again, pt had no c/p or felt like his heart was fluttering. VSS. Cont to observe.
[2022-11-23] MEDS: HEPARIN 5,000 UNIT/ML VIAL 5000 UNIT SUBCUT (21:12)
[2022-11-23] MEDS: QUETIAPINE 25 MG TABLET PO (21:12)
[2022-11-23] MEDS: ATORVASTATIN 20 MG TABLET 40 MG PO (21:12)
[2022-11-23] MEDS: SODIUM CHLORIDE 0.9% FLUSH 10 ML IV (21:12)
[2022-11-24] VITALS (7 sets, daily range): BP systolic 127–154; BP diastolic 72–78; PULSE 50–62; RESP 16–20; TEMP 36.1–36.9; O2SAT 93–96
--- NOTE | 2022-11-24 02:59 | PC.NURSE ---
Patient is alert and oriented although did not know the day of the month and can be forgetful. Breath sounds CTA with RA sat of 96%. HRR w/telemetry reading of SR w/1st degree AVB and PAC's. Was bradycardic at 0000 with BP of 127/72 so Metoprolol was held. Denies nausea. BT hypoactive but did have BM yesterday. Is voiding per toilet and/or urinal and denies dysuria. Is able to turn himself in bed. Is provided SBA when out of bed related to episodes of SVT. Has denied any pain. Refusing SCD's so reminded to ankle wave when awake. Fall risk score is moderate and bed alarm is activated related to forgetfulness. Showered earlier this shift.
[2022-11-24 08:21] LABS: Add Manual Diff / Slide Review NO; Basophils Absolute Auto 0 /uL (0-100); Basophils Percent Auto 0.4 % (0-2); Eosinophils Absolute Auto 100 /uL (0-450); Eosinophils Percent Auto 1.9 % (2-4); Hematocrit 49.8 % (41-53); Hemoglobin 16.6 g/dL (13.5-17.5); Lymphocytes Absolute Auto 1700 /uL (1100-4500); Lymphocytes Percent Auto 24.4 % (25-40); Mean Corpuscular HGB Conc 33.4 % (30-36); Mean Corpuscular Hemoglobin 29.6 PG (26-34); Mean Corpuscular Volume 88.6 fL (80-100); Monocytes Absolute Auto 900 /uL (0-900); Monocytes Percent Auto 12.9 % (3-14); Neutrophils Absolute Auto 4200 /uL (1500-7000); Neutrophils Percent Auto 60.4 % (50-75); Platelet Count 218 X10^3/uL (150-400); Red Blood Cell Count 5.62 X10^6/uL (4.5-5.9); Red Cell Distribution Width 13.1 % (11.6-14.8); White Blood Cell Count 6.9 X10^3/uL (4.5-11.0)
[2022-11-24 08:32] LABS: BUN Creatinine Ratio 28.9 (6-22); Blood Urea Nitrogen 26 mg/dL (9-20); Calcium 9.1 mg/dL (8.4-10.2); Carbon Dioxide 25 mmol/L (22-32); Chloride 105 mmol/L (98-107); Estimated Glomerular Filt Rate > 60 mL/min (>60); Glucose 97 mg/dL (80-110); HEMOLYSIS < 15 (0-50); Potassium 3.9 mmol/L (3.4-5.1); Sodium 138 mmol/L (137-145)
[2022-11-24 08:44] LABS: Troponin I 0.014 ng/mL (0.01-0.034)
[2022-11-24] MEDS: LOSARTAN 50 MG TABLET 100 MG PO (10:01)
[2022-11-24] MEDS: hydroCHLOROthiazide 25 MG TABLET 12.5 MG PO (10:01)
[2022-11-24] MEDS: POTASSIUM CHLORIDE 10 MEQ TAB PO (10:02)
[2022-11-24] MEDS: AMLODIPINE 5 MG TABLET 10 MG PO (10:02)
[2022-11-24] MEDS: METOPROLOL ER 50 MG TABLET PO (10:03)
[2022-11-24] MEDS: HEPARIN 5,000 UNIT/ML VIAL 5000 UNIT SUBCUT (10:15)
[2022-11-24] MEDS: SODIUM CHLORIDE 0.9% FLUSH 10 ML IV (10:15)
--- NOTE | 2022-11-24 15:41 | P.DS_ITS ---
History of Present Illness History of Present Illness Chief complaint: high heart rate - ~ 190 Narrative: The patient is a very pleasant 86-year-old gentleman with significant past medical history for hypertension and dyslipidemia who presents due to tachyarrhythmia to the emergency room at [facility]. Per ED report, the patient has been seen in 2 emergency room's locally for tachyarrhythmias and was received adenosine and intravenous beta-blockers followed by discharge home and close follow-up. It would seem the patient has been in SVT. Prior to presenting in the ED, he was seen at a PCP office where he reports his heart rate was in the 180s. He was thus referred to the emergency room for additional evaluation. In the ER, the patient denies having any current chest pains or shortness of b reath. He cannot appreciate an elevated high heart rate. However for the past 24 hours he reports a sense of uneasiness and wanted to get checked out. In the emergency room the patient was initially in SVT and received adenosine followed by metoprolol IV with good clinical response and that he converted to sinus rhythm. The ED attending discussed the case with on-call cardiology and an outpatient referral to cardiology was made to review SVT versus atrial flutter. Troponins 0.045 After admission when I was examining the patient, he again went into SVT 190 bpm. I gave adenosine 12 mg IV, metoprolol 5 mg IV after which the patient's heart rate was still in the 140s and 150s. Throughout this episode he remained asymptomatic on my watch. However, due to sustained heart rate in the 150s, I started him on diltiazem 20 mg IV followed by gtt. During the director of early childhood hours of November 22, 2022, the patient was bradycardic with no underlying conduction block. Heart rate in the 40s asymptomatic with normal blood pressure. At that point, we held the diltiazem. Patient denies having any fevers or chills. Discharge Providers Provider Date of admission: 11/21/22 20:12 Discharge Date: 11/24/22 Primary care physician: Chinmay Morris MD Consults: 11/22/22 18:43 Consult to Occupational Therapy Evaluate & Treat Comment: [facility] Physician Instructions: Evaluate and treat Discharge provider: Андрей Kent, DO Summary Hospital Course Discharge Diagnosis: SVT runs per EP cardiology, asymptomatic.? Repeat cardiac enzymes normal.? TSH normal.? Echo reassuring with EF 55-60%, stage 1 diastolic dysfunction. Keeping mag >2 and K >4. Outpatient cardiology evaluation plan already set between ER attending and outpatient cardiology.? Very hypertensive so amlodipine 10mg daily added with hydralazine IV PRN. Had run of SVT on 11/23 so metoprolol increased to 25mg q6h with IV pushes PRN. Discharged on metop 50 XL daily. Rate related elevated troponin 0.045. Repeat negative. Chronic Dyslipidemia on statin Hypertension on losartan and hydrochlorothiazide, plus amlodipine and hydrala zine PRN Continue aspirin 81 Hospital Course: Admitted for asymptomatic SVT runs and started on metoprolol. Had more SVT runs so metoprolol increased. Longest was 15min run of 170's HR. Echo normal. Very hypertensive so amlodipine added. Discharged to f/up with cardiology. Exam Vital Signs (past 8 hours): - 11/24/22 08:00 11/24/22 12:00 Temperature 98.1 F 98.4 F Pulse Rate 50 L 59 L Respiratory Rate 16 16 Blood Pressure 140/76 138/76 Pulse Oximetry 94 93 Oxygen Delivery Method Room Air Oxygen Flow Rate 0 Narrative Exam Narrative: Physical exam General exam the patient is conscious, cooperative and comfortable HEENT normocephalic atraumatic Neck exam supple Cardiovascular exam S1-S2 present bradycardiac, no murmur Lung exam bilateral equal expansion, clear bilaterally, no wheezing or distress, able to speak in full sentences Abdomen is soft, nontender, no guarding, no tenderness or rigidity. Bowel sounds are present throughout Neurological exam nonfocal Lower extremities are warm and well-perfused without edema Objective Labs 11/24/22 08:15 11/24/22 08:15 Labs: Laboratory Results - last 24 hr 11/24/22 11/24/22 11/24/22 08:15 08:15 08:15 WBC 6.9 RBC 5.62 Hgb 16.6 Hct 49.8 MCV 88.6 MCH 29.6 MCHC 33.4 RDW 13.1 Plt Count 218 Neut % (Auto) 60.4 Lymph % (Auto) 24.4 L [place] % (Auto) 12.9 Eos % (Auto) 1.9 L Baso % (Auto) 0.4 Neut # (Auto) 4200 Lymph # (Auto) 1700 [place] # (Auto) 900 Eos # (Auto) 100 Baso # (Auto) 0 Sodium 138 Potassium 3.9 Chloride 105 Carbon Dioxide 25 BUN 26 H Creatinine 0.90 Estimated GFR > 60 BUN/Creatinine Ratio 28.9 H Glucose 97 Calcium 9.1 Troponin I 0.014 [facility] Medical History (Updated 11/21/22 @ 20:14 by Melissa Mercer, WILTON) High cholesterol Hypertension Social History household members: spouse Smoking Status: Never smoker alcohol intake: never Discharge Plan Discharge Plan Patient Disposition: Home Provider Discharge Comment: You were diagnosed with a condition called SVT. This is a rapid heart rate. I've put you on metoprolol to help control this. I've also added a BP med. Please see Dr. Sharma aircraft worker at [facility] for follow-up. Discharge orders & Medications Prescriptions: New amlodipine 10 mg tablet 10 mg PO DAILY Qty: 90 0RF metoprolol succinate 50 mg Tablet Extended Release 24 Hr 50 mg PO DAILY Qty: 90 0RF Continued atorvastatin 40 mg tablet 40 mg PO ONCE PM potassium chloride 10 mEq tablet extended release 10 meq PO DAILY losartan-hydrochlorothiazide 100-12.5 mg tablet 1 tab PO QAM aspirin 81 mg Tablet 81 mg PO DAILY Follow up/Referrals: Chinmay Morris MD [Primary Care Provider] - 1 Week Visit Report/Discharge Packet Instructions: Paroxysmal Supraventricular Tachycardia, DI for High Blood Pressure, Metoprolol, How to Monitor Your Blood Pressure at Home Stand Alone Forms: Patient Portal/API, Stroke Signs & Symptoms Discharge Data Primary Care Provider: Chinmay Morris Attending Provider: Scar Mckinney Admit Date/Time: 11/21/22 20:12 Discharges patient from system. Discharge Date/Time: 11/24/22 12:30 Quality VTE Deep Vein Thrombosis/Pulmonary Embolism Present on Admission: No
--- NOTE | 2022-11-24 16:58 | PC.NURSE ---
Discharge: Pt has tolerated new med regime with out problems. Tele sr, no VT or runs of SVT. No c/p. Pt fel god to be d/ c to home. came and saw pt, given d/c instructions. Discharge packet given and reviewed. Questions answered. Pt d/c to home with spouse.
== END 2022-11-24 12:33 | disposition home or self-care (01) | DRG 310 ==
LOC: ED 19:27 → AC 20:12 → ICU 11-22 13:17 → AC 11-22 16:48
PROVIDERS: Emergency Medicine; Student in an Organized Health Care Education/Training Program; Admitting Provider Family Medicine; Emergency Provider Emergency Medicine; PCP Family Medicine; Referring Provider Family Medicine; Visit Provider Family Medicine
DX: I47.1 Supraventricular tachycardia (principal); E78.5 Hyperlipidemia, unspecified; I10 Essential (primary) hypertension; Z79.82 Long term (current) use of aspirin
CPT/HCPCS: 36415; 71045; 80048; 80053; 82550; 83690; 83735; 84443; 84484; 85025; 85610; 85730; 93005; 93306; 96365; 96367; 96375; 96376; 97129; 97165; 99284; G0378; J0153; J0360; J1644; J1650; J3475